=== PATIENT | female | born 1955 | race African-American/Black ===

== ENCOUNTER 2019-08-11 12:51 | Emergency (ER) | payer OTHER ==
[~2019-08-11] VITALS: Ht 167.6 cm; Wt 72.6 kg
[2019-08-11 14:24] LABS: Basophils # (auto) 0.1 uL; Eosinophils # (auto) 0 uL; Hemoglobin 12.9 g/dL (12.2-16.2); Lymphocytes # (auto) 0.6 uL; Monocytes # (auto) 0.5 uL; Monocytes % (auto) 3.4 % (0.0-12.0)
[2019-08-11 14:25] LABS: Basophils % (auto) 0.6 % (0.0-2.0); Eosinophils % (auto) 0.3 % (0.0-7.0); Hematocrit 39.7 % (36.0-46.0); Lymphocytes % (auto) 4.1 % (10.0-50.0); Mean Corpuscular Hemoglobin 25.9 pg (28.0-32.0); Mean Corpuscular Hgb Conc. 32.6 g/dL (32.0-36.0); Mean Corpuscular Volume 79.5 fL (80.0-100.0); Neutrophils % (auto) 91.6 % (37.0-80.0); Nucleated Red Blood Cells % 0.1 %; Platelet Count (auto) 246 10^3/uL (140-450); Red Blood Cells 4.99 10^6/uL (4.0-5.20); Red Cell Distribution Width 16.5 % (11.8-14.3); White Blood Cell 14.2 10^3/uL (4.4-10.8)
[2019-08-11 14:51] LABS: Albumin 2.6 g/dL (3.4-5.0); BUN/Creatinine Ratio 9.9; Calcium 8.8 mg/dL (8.5-10.1); Potassium 4.3 mmol/L (3.5-5.1)
[2019-08-11 14:56] LABS: Bilirubin, Total 0.4 mg/dL (0.2-1.0); Total Protein 7.1 g/dL (6.4-8.2)
[2019-08-11] MEDS ORDERED: IPRATROPIUM BROM 0.5 MG/2.5ML INH SOL NEB ONE (19:45)
[2019-08-11] MEDS ORDERED: ALBUTEROL SULF 2.5 MG/0.5ML(0.5%) NEB SOLN NEB ONE (19:45)
[2019-08-11] MEDS ORDERED: DOXYCYCLINE 100MG/250ML 250 ML IV ONE (20:30)
[2019-08-11 20:43] LABS: Urine Bacteria NONE SEEN /hpf (None Seen); Urine Blood Negative /uL (Negative); Urine Hyaline Cast FEW /lpf (0 - 2); Urine Specific Gravity 1.013 (1.001-1.035); Urine WBC 3 /hpf (0 - 5)
[2019-08-11] MEDS ORDERED: methylPREDNISolone SOD SUCC 125 MG/2 ML VL IV ONE (21:00)
[2019-08-12 00:56] VITALS: BP 120/69
== END 2019-08-12 01:19 | disposition home or self-care (01) ==
LOC: ER 12:51 → EDBD 12:51 → ER 08-12 01:19
DX: J44.1 Chronic obstructive pulmonary disease with (acute) exacerbation (principal); R79.89 Other specified abnormal findings of blood chemistry; I10 Essential (primary) hypertension
CPT/HCPCS: 36415; 71046; 80053; 81001; 83880; 84484; 85025; 93005; 94640; 96365; 96366; 96375; 99285; J2930; J3490; J7611; J7644

== ENCOUNTER 2024-09-07 14:06 | Inpatient (IN) | payer OTHER ==
[~2024-09-07] VITALS: Ht 160 cm; Wt 61.9 kg
--- NOTE | 2024-09-07 14:34 | ECG ---
[facility] Test Date: 2024-09-07 Test Time: 14:27:21 Pat Name: CINDY LOZANO Department: ER Room: 0240 Gender: F Community Support Professional: LASHAWN : 1955 Requested By: ABEBE HAMLIN Order Number: [id number] Reading MD: Horacio Rea Measurements Intervals [place] Rate: 113 P: 70 TX: 134 QRS: 110 QRSD: 86 T: 53 QT: 398 QTc: 546 Interpretive Statements Sinus arrhythmia Multiple premature complexes, vent & supraven Consider right ventricular hypertrophy Borderline T abnormalities, anterior leads Prolonged QT interval Electronically Signed On 09-11-2024 17:32:07 PST by Horacio Rea Please click the below link to view image of tracing.
--- NOTE | 2024-09-07 14:56 | DVH ---
CHEST RADIOGRAPH Indication: sob Technique: Single frontal view of the chest was obtained Comparison: None FINDINGS: Lines and Tubes: None Lungs: No focal consolidation. Pleura: No effusion. No pneumothorax. Cardiomediastinal contours: Unremarkable Bones: No acute osseous abnormality. IMPRESSION: No acute cardiopulmonary disease.
[2024-09-07 15:18] LABS: Basophils # (auto) 0.1 10 ^3/uL (0-0.2); Basophils % (auto) 0.8 % (0.0-2.0); Eosinophils # (auto) 0 10 ^3/uL (0-0.8); Eosinophils % (auto) 0.4 % (0.0-7.0); Hematocrit 42.4 % (36.0-46.0); Hemoglobin 13.5 g/dL (12.2-16.2); Lymphocytes % (auto) 14.7 % (10.0-50.0); Mean Corpuscular Hemoglobin 25.6 pg (28.0-32.0); Mean Corpuscular Hgb Conc. 31.7 g/dL (32.0-36.0); Mean Corpuscular Volume 80.6 fL (80.0-100.0); Monocytes # (auto) 0.4 10 ^3/uL (0-1.3); Monocytes % (auto) 6.3 % (0.0-12.0); Neutrophils # (auto) 5.4 10 ^3/uL (1.6-8.6); Neutrophils % (auto) 77.8 % (37.0-80.0); Nucleated Red Blood Cells % 0.3 %; Platelet Count (auto) 277 10^3/uL (140-450); Red Blood Cells 5.26 10^6/uL (4.0-5.20); Red Cell Distribution Width 17.6 % (11.8-14.3); White Blood Cell 6.9 10^3/uL (4.4-10.8)
[2024-09-07 15:31] LABS: Chloride 101 mmol/L (98-107); Sodium 141 mmol/L (136-145)
[2024-09-07 15:32] LABS: Anion Gap 7 (5-15)
[2024-09-07 15:37] LABS: BUN/Creatinine Ratio 7.7 (10.0-20.0)
[2024-09-07 15:40] LABS: Blood Urea Nitrogen 6 mg/dL (9-23); Carbon Dioxide 33 mmol/L (20-31); Glucose 171 mg/dL (74-106); Potassium 3.1 mmol/L (3.5-5.1)
[2024-09-07] MEDS: ASPirin 325 MG TAB PO ONE (17:16)
[2024-09-07] MEDS: IPRATROPIUM BROM 0.5 MG/2.5ML INH SOL NEB ONE (19:30)
[2024-09-07] MEDS: ALBUTEROL SULF 2.5 MG/0.5ML(0.5%) NEB SOLN NEB ONE (19:30)
--- NOTE | 2024-09-07 19:38 | ED.PDOC ---
SOB-HPI HPI Comments 19-year-old female with a history of diabetes, asthma, recently diagnosed with pneumonia and influenza on home O2 at 3 L brought in by EMS, transferred from [place] urgent care for evaluation of elevated troponin. Patient presented there for a complaint of epigastric pressure and belching. Troponins there were slightly elevated, so patient was transferred to our ER. Patient denies any chest pain, does state she is intermittently short of breath, however she states her shortness a breath is usually relieved by putting on her oxygen. She denies any fever, cough, nausea, vomiting, diaphoresis or edema. Patient states she was recently admitted at another facility in July with pneumonia and influenza. She was discharged on 08/09/2024 on home oxygen at 3 L. 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 Moist mucous membranes.) Neck: Full Range of Motion, Normal Inspection Respiratory: Decreased Breath Sounds, No Accessory Muscle Use, No Respiratory Distress, Other (Tachypnea) Cardiovascular: No Edema, No JVD, Regular Rate/Rhythm Breast Exam: Deferred Gastrointestinal: Non Tender, Soft Genitalia: Deferred Pelvic: Deferred Rectal: Deferred Extremities: Normal inspection, Normal range of motion, Non-tender, No pedal edema Neurologic: Alert (Oriented x4), Normal Affect, Normal Mood, Other (Ambulatory without difficulty. No gross focal deficit.) Cerebellar Function: NOT DONE Reflexes: NOT DONE Skin: Dry, Normal Color, Warm Lymphatic: NOT DONE EKG EKG : Comments Sinus tach with sinus arrhythmia, rate 113, normal NM and QRS intervals, QTC prolonged at 546, multiple PACs,, normal QRS, anteroseptal T inversion with ST depression Was a procedure done? Was a procedure done?: No Differential Dx Differential Diagnosis: Asthma, Bronchitis, CHF, COPD, Hyperventilation, Myocardial infarction, Pneumonia, PSVT, Pulmonary Embolism, Respiratory Distress Comments AFib, MAT, among others X-Ray, Labs, Meds, VS Vital Signs Date Time Temp Pulse Resp B/P (MAP) Pulse Ox O2 Delivery O2 Flow Rate FiO2 09/07/24 20:16 91 Nasal Cannula* 2 09/07/24 19:40 94 20 91 Nasal Cannula* 2 09/07/24 19:40 97.6 94 20 115/59 (77) 91 97.6 09/07/24 19:30 18 91 Nasal Cannula* 2 09/07/24 14:49 98.2 114 16 156/86 (109) 96 09/07/24 14:27 113 Lab Test 09/07/24 19:46 09/07/24 18:12 09/07/24 16:09 09/07/24 14:57 Range/Units Blood Gas Specimen Type Arterial Blood Gas Sample Site Right radial Blood Gas Patient Temperature 37.0 Arterial Blood Date Drawn [id number] Arterial Blood pH 7.502 H 7.350-7.450 Arterial Blood Partial Pressure CO2 41.6 32.0-45.0 mmHg Arterial Blood Partial Pressure O2 51.7 *L 83.0-108.0 mmHg Arterial Blood HCO3 31.9 H 21.0-28.0 mmol/L Arterial Blood Oxygen Saturation 87.5 L 94.0-98.0 % Arterial Blood Base Excess 8.0 H -2.0-3.0 mmol/L Arterial Blood Oxyhemoglobin 84.7 L 94.0-98.0 % Arterial Blood Carboxyhemoglobin 2.7 H 0.5-1.5 % Arterial Blood Methemoglobin 0.5 0.0-1.5 % Herber Test Yes Blood Gas Total Hemoglobin 13.60 12.0-16.0 g/dL Blood Gas Liter Flow 2.00 Blood Gas Modality Nasal cannula Blood Gas Spontaneous Rate 18 FiO2 % 28.0 Blood Gas Critical Value Read Back Yes Blood Gas Notified Whom Dr. fransisco hamlin Blood Gas Notified Time [id number] Blood Gas Notified By Phillip pineda rcp Magnesium Level 2.1 1.6-2.6 mg/dL Troponin I High Sensitivity 39 *H 35 *H 35 *H </=34 ng/L Triglycerides Level 110 < 150 mg/dL Cholesterol Level 242 H < 200 mg/dL LDL Cholesterol 81 < 100 mg/dL HDL Cholesterol 124 H 40-59 mg/dL White Blood Count 6.9 4.4-10.8 10^3/uL Red Blood Count 5.26 H 4.0-5.20 10^6/uL Hemoglobin 13.5 12.2-16.2 g/dL Hematocrit 42.4 36.0-46.0 % Mean Corpuscular Volume 80.6 80.0-100.0 fL Mean Corpuscular Hemoglobin 25.6 L 28.0-32.0 pg Mean Corpuscular Hemoglobin Concent 31.7 L 32.0-36.0 g/dL Red Cell Distribution Width 17.6 H 11.8-14.3 % Platelet Count 277 140-450 10^3/uL Mean Platelet Volume 7.9 6.9-10.8 fL Neutrophils (%) (Auto) 77.8 37.0-80.0 % Lymphocytes (%) (Auto) 14.7 10.0-50.0 % Monocytes (%) (Auto) 6.3 0.0-12.0 % Eosinophils (%) (Auto) 0.4 0.0-7.0 % Basophils (%) (Auto) 0.8 0.0-2.0 % Neutrophils # (Auto) 5.4 1.6-8.6 10 ^3/uL Lymphocytes # (Auto) 1.0 0.4-5.4 10 ^3/uL Monocytes # (Auto) 0.4 0-1.3 10 ^3/uL Eosinophils # (Auto) 0 0-0.8 10 ^3/uL Basophils # (Auto) 0.1 0-0.2 10 ^3/uL Nucleated Red Blood Cells 0.3 % Sodium Level 141 136-145 mmol/L Potassium Level 3.1 L 3.5-5.1 mmol/L Chloride Level 101 98-107 mmol/L Carbon Dioxide Level 33 H 20-31 mmol/L Anion Gap 7 5-15 Blood Urea Nitrogen 6 L 9-23 mg/dL Creatinine 0.78 0.550-1.02 mg/dL Glomerular Filtration Rate Calc 81 >90 mL/min BUN/Creatinine Ratio 7.7 L 10.0-20.0 Serum Glucose 171 H 74-106 mg/dL Calcium Level 10.0 8.7-10.4 mg/dL B-Type Natriuretic Peptide 50.44 0-100 pg/mL Current Medications Medications (Trade) Dose Ordered Sig/Vee Route Start Time Stop Time Status Last Admin Aspirin 325 mg ONCE ONCE PO 09/07/24 14:45 09/07/24 14:46 DC 09/07/24 17:16 Albuterol (Ventolin Medneb) 2.5 mg ONCE ONCE NEB 09/07/24 19:30 09/07/24 19:31 DC 09/07/24 19:30 Ipratropium [place] (Atrovent Medneb) 0.5 mg ONCE ONCE NEB 09/07/24 19:30 09/07/24 19:31 DC 09/07/24 19:30 Methylprednisolone Sodium Succinate (Solu Medrol) 125 mg ONCE ONCE IV 09/07/24 19:30 09/07/24 19:31 DC 09/07/24 20:06 Potassium Bicarbonate (Klor-Con/Ef) 50 meq ONCE ONCE PO 09/07/24 19:45 09/07/24 19:46 DC 09/07/24 20:07 Sodium Chloride 1,000 ml @ 1,000 mls/hr Q1H ONCE IV 09/07/24 19:45 09/07/24 20:44 DC 09/07/24 20:06 PROCEDURE(s): CXRP - CHEST PORTABLE REASON: sob ORDER NUMBER(s): [id number], ACCESSION NUMBER(s): [id number] CHEST RADIOGRAPH Indication: sob Technique: Single frontal view of the chest was obtained Comparison: None FINDINGS: Lines and Tubes: None Lungs: No focal consolidation. Pleura: No effusion. No pneumothorax. Cardiomediastinal contours: Unremarkable Bones: No acute osseous abnormality. IMPRESSION: No acute cardiopulmonary disease. X-Ray, Labs, Meds, VS Comment 69-year-old female with a history of diabetes, asthma/COPD, pneumonia and influenza on home O2, referred by [place] [facility] for epigastric pressure, shortness of breath and elevated troponin Vitals remarkable for heart rate 113, oxygen saturation 88% on room air interm ittently when patient is talking Exam remarkable for tachypnea and tachycardia Rhythm strip independently interpreted by me: Sinus tach with multiple PACs, rate 113 Chest x-ray IMPRESSION: No acute cardiopulmonary disease. CT angio chest pending CBC unremarkable, metabolic panel remarkable for potassium 3.1, CO2 33, BNP normal, serial troponins 35, 35 and 39 Patient treated with the following in the ED: Aspirin 325 mg p.o., albuterol 2.5 mg/Atrovent 0.5 mg nebulized, effervescent potassium 50 mEq p.o., 1 L 0.9 normal saline IV bolus On re-evaluation, patient is saturating 91% on 3 L nasal cannula, heart rate is 112, she is not in respiratory distress. Plan is to admit/transfer the patient for Cardiology evaluation and respiratory support as needed Case discussed with [facility] who authorized us to admit the patient here. Authorization [id number] Time of 1ST Reevaluation: 19:35 Reevaluation 1ST: Unchanged Patient Education/Counseling: Diagnosis, Treatment, Need For Follow Up Family Education/Counseling: No Family Present Departure 1 Departure Time of Disposition: 19:35 Impression: Primary Impression: Elevated troponin Additional Impressions: Acute exacerbation of chronic obstructive pulmonary disease [id number] respiratory failure Qualified Codes: J96.20 - Acute and chronic respiratory failure, unspecified whether with hypoxia or hypercapnia Disposition: ADMITTED INPATIENT Admit to: Tele Condition: Guarded Critical Care Note Critical Care Time?: No Stability Stability form required: No Heart Score Heart Score: Heart Score Response (Comments) Value History Slightly Suspicious [address]-Deviation 2 Age >65 2 Risk Factors 1 or 2 risk factors 1 Troponin 1-2 x's Normal limit 1 Total 6 AU ABEBE HAMLIN MD Sep 07, 2024 19:38
[2024-09-07 19:40] VITALS: PULSE 94; RESP 20; O2SAT 91
[2024-09-07] MEDS: SODIUM CHLORIDE 0.9% 1,000 ML IV ONE (20:06)
[2024-09-07] MEDS: methylPREDNISolone SOD SUCC 125 MG/2 ML VL IV ONE (20:06)
[2024-09-07] MEDS: POTASSIUM EFFERVESENT TAB 25 MEQ PO ONE (20:07)
[2024-09-07] MEDS: IOHEXOL 350 MG/ML 100ML IJ ONE (21:49)
--- NOTE | 2024-09-07 21:59 | DVH ---
History: hypoxia, tachycardia, elevated trop r/o PE Comparison: None relevant TECHNIQUE: Using a slice CT scanner volumetric data acquisition of chest, abdomen and pelvis was obta ined following intravenous administration of intravenous 100 ml contrast without any reported adverse effects. Axial images were reconstructed and additional sagittal and coronal images were reformatted . 3D/MIP images were performed and reviewed for reporting. Radiation Dose Information: CT Dose: CTDI volume is mGy. Dose-length product is mGy*cm Findings: There is increased kyphosis involving the mid thoracic spine with multiple midthoracic vertebral bodi es demonstrating anterior wedging is also disc disease associated with those bodies. The pulmonary arteries are enlarged. The central pulmonary artery measures 3.73 cm in caliber right p ulmonary artery measures 2.72 cm in caliber in the left pulmonary artery measures 2.35 cm in caliber. Is bilateral hilar adenopathy no pulmonary emboli are seen. There is a spiculated nodule seen in the posterior left lower lobe measuring 2.89 X 1.08x 2.63 cm is adjacent to the left pleura is also kourtney lar finding in the left lingula measures 1.28 by 1 by 1.63 cm. There are calcified lymph nodes throug hout the mediastinum including the asia. Heart is borderline size. Lower esophagus is unremarkable upper abdomen appears to be within normal l imits. IMPRESSION: 1. Borderline cardiomegaly. There are 2 parenchymal nodules in the left lung which are suspicious. There is no evidence for pulmonary embolus. Lung rads category 4 follow-up study in 3 months consideration of biopsy or PET scan is suggested.
[2024-09-07] MEDS: SODIUM CHLORIDE 0.9% 1,000 ML IV SCH (22:15)
[2024-09-07] MEDS ORDERED: ACETAMINOPHEN 325 MG TAB PO PRN (22:15)
[2024-09-07 22:37] LABS: Magnesium 2.1 mg/dL (1.6-2.6)
--- NOTE | 2024-09-07 22:56 | DVHHPRES ---
History of Present Illness Resident Creating Document: CLIVE LOVE RESIDENT History of Present Illness This is a 69-year-old female with past medical history of asthma, questionable COPD which is on home oxygen at 2 L through nasal cannula. Patient stated that since a severe asthma attack in 2019 associated with pneumonia she was placed on home oxygen at that time. The patient presented to the ED referred by [facility] due to elevated troponins. When questioning the patient furthermore about reasons of going to the urgent care, she stated that she went because she was feeling "gas trapping in her abdomen and chest" that was disturbing her and not allowing her to breathe properly. She also mentioned that she felt some "hemorrhoids" and wanted to get checked out. While in the urgent care, they ordered blood test to rule out cardiac etiology and showed elevated troponins and was referred to our ED. on admission, the patient denied chest pain, shortness of breath, fever/chills or any other issues. Initial EKG showed sinus arrhythmia with nonspecific T-wave abnormalities but no ST segment elevation or depression. There was also prolongation of the QT interval initial labs showed normal CBC, BNP showed hypokalemia at 3.1 rest of electrolytes and kidney function was remarkable. Troponins came back slightly elevated 39 and BNP was on normal range at 50.44. Initial chest x-ray was showing no evidence of clear consolidations and was grossly unremarkable. On my examination, the patient was on 2 L of oxygen through nasal cannula in no respiratory distress at this time. There were very mild crackles on right lung base, no peripheral edema, no chest pain or any other signs or symptoms. The patient will be admitted for further assessment and management of NSTEMI and possible asthma/COPD exacerbation. Past medical history: Asthma, questionable COPD Home medications: Albuterol inhaler, ipratropium bromide inhaler 17 mcg, Spiriva, vitamin-D, three day pill ([id number]-Ojhtngkui-Lrvsrh) of azithromycin Pulmonary: Asthma Past Surgical History: None Family History: None Smoke: No ALCOHOL: none Drugs: None Lives: with Family Domestic Violence: Neg Review of Systems Constitutional: No: Fever, Chills, Sweats, Weakness, Malaise, Other Eyes: No: Pain, Vision change, Conjunctivae inflammation, Eyelid inflammation, Other, Redness ENT: No: Ear pain, Ear discharge, Nose pain, Nose discharge, Nose congestion, Mouth pain, Mouth swelling, Throat pain, Throat swelling, Other Respiratory: Shortness of breath, SOB with excertion; No: Cough, Dry, Wheezing, Hemoptysis, Pleuritic Pain, Sputum, Wheezing, Other Cardiovascular: No: Chest Pain, Palpitations, Orthopnea, Paroxysmal Noc. Dyspnea, Edema, Lt Headedness, Other Gastrointestinal: No: Nausea, Vomiting, Abdominal Pain, Diarrhea, Constipation, Melena, Hematochezia, Other Genitourinary: No Dysuria, No Frequency, No Incontinence, No Hematuria, No Retention, No Other Musculoskeletal: No: other, neck pain, shoulder pain, arm pain, back pain, hand pain, leg pain, foot pain Skin: No: Rash, Lesions, Jaundice, Bruising, Other Neurological: No: Weakness, Numbness, Incoordination, Change in speech, Confusion, Seizures, Other Allergies: Coded Allergies: NO KNOWN ALLERGIES (Unverified , 08/11/19) Medications Current Medications Medications Dose Ordered Sig/Vee Route Start Time Stop Time Status Last Admin Dose Admin Sodium Chloride 1,000 ml @ 60 mls/hr [id number] IV 09/07/24 22:15 UNV Acetaminophen 650 mg Q6HP PRN PO 09/07/24 22:15 UNV Enoxaparin Sodium 40 mg DAILY SC 09/08/24 10:00 UNV Exam Vital Signs Vital Signs Date Time Temp Pulse Resp B/P (MAP) Pulse Ox O2 Delivery O2 Flow Rate FiO2 09/07/24 20:16 91 Nasal Cannula* 2 28 09/07/24 19:40 94 20 09/07/24 19:40 97.6 115/59 (77) 97.6 General Appearance: Alert, Oriented X3, Cooperative, No acute distress HEENT: Atraumatic, PERRLA, EOMI, Mucous membr. moist/pink Respiratory: Clear to auscultation, Normal air movement, Other (Are very mild crackles on right lung base) Cardiovascular: Regular rate, Normal S1, Normal S2, No murmurs Abdominal: Normal bowel sounds, Soft, No tenderness, No hepatospenomegaly Extremities: No clubbing, No cyanosis, No edema, Normal pulses, No tenderness/swelling Skin: No rashes, No breakdown, No significant lesion Neuro: Normal gait, Normal speech, Strength at 5/5 X4 ext, Normal tone, Sensation intact, Cranial nerves 3-12 NL, Reflexes 2+ Psych/Mental Status: Mental status NL, Mood NL Labs/Xrays Labs Test 09/07/24 19:46 09/07/24 18:12 09/07/24 14:57 Range/Units Blood Gas Specimen Type Arterial Blood Gas Sample Site Right radial Blood Gas Patient Temperature 37.0 Arterial Blood Date Drawn [id number] Arterial Blood pH 7.502 H 7.350-7.450 Arterial Blood Partial Pressure CO2 41.6 32.0-45.0 mmHg Arterial Blood Partial Pressure O2 51.7 *L 83.0-108.0 mmHg Arterial Blood HCO3 31.9 H 21.0-28.0 mmol/L Arterial Blood Oxygen Saturation 87.5 L 94.0-98.0 % Arterial Blood Base Excess 8.0 H -2.0-3.0 mmol/L Arterial Blood Oxyhemoglobin 84.7 L 94.0-98.0 % Arterial Blood Carboxyhemoglobin 2.7 H 0.5-1.5 % Arterial Blood Methemoglobin 0.5 0.0-1.5 % Herber Test Yes Blood Gas Total Hemoglobin 13.60 12.0-16.0 g/dL Blood Gas Liter Flow 2.00 Blood Gas Modality Nasal cannula Blood Gas Spontaneous Rate 18 FiO2 % 28.0 Blood Gas Critical Value Read Back Yes Blood Gas Notified Whom Dr. fransisco anderson Blood Gas Notified Time [id number] Blood Gas Notified By Phillip pineda consumer affairs director Troponin I High Sensitivity 39 *H </=34 ng/L White Blood Count 6.9 4.4-10.8 10^3/uL Red Blood Count 5.26 H 4.0-5.20 10^6/uL Hemoglobin 13.5 12.2-16.2 g/dL Hematocrit 42.4 36.0-46.0 % Mean Corpuscular Volume 80.6 80.0-100.0 fL Mean Corpuscular Hemoglobin 25.6 L 28.0-32.0 pg Mean Corpuscular Hemoglobin Concent 31.7 L 32.0-36.0 g/dL Red Cell Distribution Width 17.6 H 11.8-14.3 % Platelet Count 277 140-450 10^3/uL Mean Platelet Volume 7.9 6.9-10.8 fL Neutrophils (%) (Auto) 77.8 37.0-80.0 % Lymphocytes (%) (Auto) 14.7 10.0-50.0 % Monocytes (%) (Auto) 6.3 0.0-12.0 % Eosinophils (%) (Auto) 0.4 0.0-7.0 % Basophils (%) (Auto) 0.8 0.0-2.0 % Neutrophils # (Auto) 5.4 1.6-8.6 10 ^3/uL Lymphocytes # (Auto) 1.0 0.4-5.4 10 ^3/uL Monocytes # (Auto) 0.4 0-1.3 10 ^3/uL Eosinophils # (Auto) 0 0-0.8 10 ^3/uL Basophils # (Auto) 0.1 0-0.2 10 ^3/uL Nucleated Red Blood Cells 0.3 % Sodium Level 141 136-145 mmol/L Potassium Level 3.1 L 3.5-5.1 mmol/L Chloride Level 101 98-107 mmol/L Carbon Dioxide Level 33 H 20-31 mmol/L Anion Gap 7 5-15 Blood Urea Nitrogen 6 L 9-23 mg/dL Creatinine 0.78 0.550-1.02 mg/dL Glomerular Filtration Rate Calc 81 >90 mL/min BUN/Creatinine Ratio 7.7 L 10.0-20.0 Serum Glucose 171 H 74-106 mg/dL Calcium Level 10.0 8.7-10.4 mg/dL B-Type Natriuretic Peptide 50.44 0-100 pg/mL Assessment/Plan Assessment/Plan Assessment/plan Acute respiratory distress likely due to multifocal pneumonia/COPD exacerbation R/O pulmonary embolism -currently on 2 L of oxygen through nasal cannula which is her baseline -initial chest x-ray showing possible hyperinflated lungs but no clear consolidation at this time -ordered CT angio chest -Start IV doxycycline due to prolongued QT interval on EKG -respiratory therapy with albuterol and ipratropium med nebs -methylprednisolone 40 mg IV b.i.d. -Monitor O2 sats NSTEMI likely type II -Denies chest pain -Trops slightly positive 35-39 -EKG showed sinus arrhythmia with nonspecific T-wave abnormalities without ST segment elevation or depression. There was also QT prolongation -trend troponins -ordered echocardiogram to rule out motion abnormalities Acute Hypokalemia -Potassium was 3.1, was replaced -Check electrolytes closely Diabetes mellitus type II -patient is hyperglycemic but denies hx of DM -Ordered Hb A1c which came back at 9.3% -Start lantus 15 units daily -Start mod sliding scale insulin Goals of care discussed with the patient for >30min, FULL CODE Plan discussed with Dr. Julio Plan discussed with: Patient My Orders Orders - CLIVE LOVE Procedure Category Date Status Time Admit ADMIT 09/07/24 Transmitted 22:04 Code Status CODE 09/07/24 Transmitted 22:04 Vital Signs LISA 09/07/24 In Process 22:04 Review Orders With LISA 09/07/24 In Process Adm. 22:04 Encourage Activity As LISA 09/07/24 In Process Tolerate 22:04 Regular Diet DIET 09/08/24 Transmitted Breakfast Sodium Chloride 0.9% PHA 09/07/24 Logged 22:15 Acetaminophen Tablet PHA 09/07/24 Logged (Tylenol Tablet) 22:15 Notify Md Of Changes LISA 09/07/24 In Process From Base 22:04 Advance Directive LISA 09/07/24 In Process 22:04 Basic Metabolic Panel LAB 09/08/24 Verified 04:00 Urinalysis LAB 09/07/24 Logged 22:04 Lipid Panel LAB 09/07/24 Logged 22:04 Urine Bacterial SCOOTER 09/07/24 Logged Culture 22:04 Patient Condition ORDERS 09/07/24 Transmitted 22:04 Allergies LISA 09/07/24 In Process 22:04 Drug Screen LAB 09/07/24 Logged 22:04 Hemoglobin A1c LAB 09/07/24 Logged 22:04 Enoxaparin Sodium PHA 09/08/24 Logged (Lovenox) 10:00 Magnesium LAB 09/07/24 Transmitted 22:10 Lactic Acid W/ Reflex LAB 09/07/24 Transmitted Order 22:10 Echo 2d Mode Cardiac US 09/07/24 Transmitted DOP 22:10 Date of Service: Sep 07, 2024 Billing Provider: MARIA L JULIO MD Common Visit Codes: 36999-[id number] INP/OBS CARE (HIGH) Secondary Visit Codes: [id number] CARE PLAN 30 MINUTES CLIVE LOVE RESIDENT Sep 07, 2024 22:56 MARIA L JULIO MD Sep 08, 2024 14:43
[2024-09-07] MEDS: DOXYCYCLINE 100MG/100ML 100 ML IV SCH (23:22)
[2024-09-08] VITALS (18 sets, daily range): BP systolic 104–133; BP diastolic 52–76; PULSE 85–110; RESP 16–20; TEMP 97.4–98; O2SAT 91–100
[2024-09-08] MEDS: IPRATROPIUM BROM 0.5 MG/2.5ML INH SOL NEB SCH
[2024-09-08] MEDS: ALBUTEROL SULF 2.5 MG/0.5ML(0.5%) NEB SOLN NEB SCH
[2024-09-08] MEDS ORDERED: TIOTCAP IN (03:14)
[2024-09-08] MEDS ORDERED: ALBU2SYP25 PO (03:14)
[2024-09-08] MEDS ORDERED: IPRIH INH (03:14)
[2024-09-08] MEDS ORDERED: MONT4CHW74 PO (03:14)
[2024-09-08 06:29] LABS: Anion Gap 10 (5-15); Carbon Dioxide 26 mmol/L (20-31); Chloride 103 mmol/L (98-107); Potassium 4.7 mmol/L (3.5-5.1); Sodium 139 mmol/L (136-145)
[2024-09-08 06:30] LABS: Calcium 9.8 mg/dL (8.7-10.4)
[2024-09-08 06:35] LABS: BUN/Creatinine Ratio 13.2 (10.0-20.0); Blood Urea Nitrogen 14 mg/dL (9-23)
[2024-09-08 06:40] LABS: Glucose 509 mg/dL (74-106)
[2024-09-08] MEDS ORDERED: DEXTROSE (50%) 50ML SYRG IV PRN (07:00)
[2024-09-08] MEDS: InsuLIN REG 1unit/0.01ml Soln (100units/ml) SC SCH (07:58)
[2024-09-08] MEDS: ACCU-CHEK COMFORT CURVE STRIP VI SCH (07:59)
[2024-09-08] MEDS: INSULIN LANTUS (GLARGINE) 1 /0.01ml (100units/ml) SC SCH (07:59)
[2024-09-08] MEDS: ENOXAPARIN SOD 40 MG/0.4 ML SYRINGE SC SCH (10:10)
[2024-09-08] MEDS: methylPREDNISolone SOD SUCC 40 MG/ML VL IV SCH (10:10)
--- NOTE | 2024-09-08 14:43 | DVHDSRES ---
Discharge Summary Date of Admission Resident Creating Document: CAMERON SIBLEY RESIDENT Sep 07, 2024 at 22:04 Date of Discharge: Sep 08, 2024 Admitting Diagnosis Suspected Acute coronary syndrome/NSTEMI-elevated troponin I Labs/Diagnostic Data: Laboratory Results Test 09/08/24 12:32 09/08/24 05:35 09/07/24 23:10 09/07/24 19:46 POC Glucose 75 mg/dl (70-106) Sodium Level 139 mmol/L (136-145) Potassium Level 4.7 mmol/L (3.5-5.1) Chloride Level 103 mmol/L (98-107) Carbon Dioxide Level 26 mmol/L (20-31) Anion Gap 10 (5-15) Blood Urea Nitrogen 14 mg/dL (9-23) Creatinine 1.06 mg/dL (0.550-1.02) Glomerular Filtration Rate Calc 56 mL/min (>90) BUN/Creatinine Ratio 13.2 (10.0-20.0) Serum Glucose 509 mg/dL (74-106) Calcium Level 9.8 mg/dL (8.7-10.4) Hemoglobin A1c 9.3 % A1C (<5.7) Lactic Acid Level 0.9 mmol/L (0.4-2.0) Vitamin B12 Level 617 pg/mL (211-911) Vitamin D 25-Hydroxy 32.2 ng/mL (30.0-100) Blood Gas Specimen Type Arterial Blood Gas Sample Site Right radial Blood Gas Patient Temperature 37.0 Arterial Blood Date Drawn [id number] Arterial Blood pH 7.502 (7.350-7.450) Arterial Blood Partial Pressure CO2 41.6 mmHg (32.0-45.0) Arterial Blood Partial Pressure O2 51.7 mmHg (83.0-108.0) Arterial Blood HCO3 31.9 mmol/L (21.0-28.0) Arterial Blood Oxygen Saturation 87.5 % (94.0-98.0) Arterial Blood Base Excess 8.0 mmol/L (-2.0-3.0) Arterial Blood Oxyhemoglobin 84.7 % (94.0-98.0) Arterial Blood Carboxyhemoglobin 2.7 % (0.5-1.5) Arterial Blood Methemoglobin 0.5 % (0.0-1.5) Herber Test Yes Blood Gas Total Hemoglobin 13.60 g/dL (12.0-16.0) Blood Gas Liter Flow 2.00 Blood Gas Modality Nasal cannula Blood Gas Spontaneous Rate 18 FiO2 % 28.0 Blood Gas Critical Value Read Back Yes Blood Gas Notified Whom Dr. fransisco anderson Blood Gas Notified Time [id number] Blood Gas Notified By Phillip pineda cold mill operator Test 09/07/24 18:12 09/07/24 14:57 Magnesium Level 2.1 mg/dL (1.6-2.6) Troponin I High Sensitivity 39 ng/L (</=34) Triglycerides Level 110 mg/dL (< 150) Cholesterol Level 242 mg/dL (< 200) LDL Cholesterol 81 mg/dL (< 100) HDL Cholesterol 124 mg/dL (40-59) White Blood Count 6.9 10^3/uL (4.4-10.8) Red Blood Count 5.26 10^6/uL (4.0-5.20) Hemoglobin 13.5 g/dL (12.2-16.2) Hematocrit 42.4 % (36.0-46.0) Mean Corpuscular Volume 80.6 fL (80.0-100.0) Mean Corpuscular Hemoglobin 25.6 pg (28.0-32.0) Mean Corpuscular Hemoglobin Concent 31.7 g/dL (32.0-36.0) Red Cell Distribution Width 17.6 % (11.8-14.3) Platelet Count 277 10^3/uL (140-450) Mean Platelet Volume 7.9 fL (6.9-10.8) Neutrophils (%) (Auto) 77.8 % (37.0-80.0) Lymphocytes (%) (Auto) 14.7 % (10.0-50.0) Monocytes (%) (Auto) 6.3 % (0.0-12.0) Eosinophils (%) (Auto) 0.4 % (0.0-7.0) Basophils (%) (Auto) 0.8 % (0.0-2.0) Neutrophils # (Auto) 5.4 10 ^3/uL (1.6-8.6) Lymphocytes # (Auto) 1.0 10 ^3/uL (0.4-5.4) Monocytes # (Auto) 0.4 10 ^3/uL (0-1.3) Eosinophils # (Auto) 0 10 ^3/uL (0-0.8) Basophils # (Auto) 0.1 10 ^3/uL (0-0.2) Nucleated Red Blood Cells 0.3 % B-Type Natriuretic Peptide 50.44 pg/mL (0-100) Other Laboratory Tests 09/08/24 05:35 09/07/24 14:57 Brief Hx & Hospital Course: HPI-This is a 69-year-old female with past medical history of asthma, questionable COPD which is on home oxygen at 2 L through nasal cannula. Patient stated that since a severe asthma attack in 2019 associated with pneumonia she was placed on home oxygen at that time. The patient presented to the ED referred by [facility] due to elevated troponins. When questioning the patient furthermore about reasons of going to the urgent care, she stated that she went because she was feeling "gas trapping in her abdomen and chest" that was disturbing her and not allowing her to breathe properly. She also mentioned that she felt some "hemorrhoids" and wanted to get checked out. While in the urgent care, they ordered blood test to rule out cardiac etiology and showed elevated troponins and was referred to our ED. on admission, the patient denied chest pain, shortness of breath, fever/chills or any other issues. Initial EKG showed sinus arrhythmia with nonspecific T-wave abnormalities but no ST segment elevation or depression. There was also prolongation of the QT interval initial labs showed normal CBC, BNP showed hypokalemia at 3.1 rest of electrolytes and kidney function was remarkable. Troponins came back slightly elevated 39 and BNP was on normal range at 50.44. Initial chest x-ray was showing no evidence of clear consolidations and was grossly unremarkable. On my examination, the patient was on 2 L of oxygen through nasal cannula in no respiratory distress at this time. There were very mild crackles on right lung base, no peripheral edema, no chest pain or any other signs or symptoms. The patient will be admitted for further assessment and management of NSTEMI and possible asthma/COPD exacerbation. Hospital course-patient came to the hospital as she was found to have elevated troponin I in the urgent care at [facility]. Patient went to the urgent care due to abdominal bloating, gastric distention of the abdomen and chest, concerned about hemodialysis.Initial EKG showed sinus arrhythmia with nonspecific T-wave abnormalities but no ST segment elevation or depression. There was also prolongation of the QT interval initial labs showed normal CBC, BNP showed hypokalemia at 3.1 rest of electrolytes and kidney function was remarkable. Troponins came back slightly elevated 39 and BNP was on normal range at 50.44. Initial chest x-ray was showing no evidence of clear consolidations and was grossly unremarkable. On my examination, the patient was on 2 L of oxygen through nasal cannula in no respiratory distress at this time. There were very mild crackles on right lung base, no peripheral edema, no chest pain or any other signs or symptoms. The patient will be admitted for further assessment and management of NSTEMI and possible asthma/COPD exacerbation. Patient was treated with IV ceftriaxone and azithromycin and methylprednisolone for suspected pneumonia with exacerbation of COPD. Patient had steroid-induced hyperglycemia. Patient is adamant about going home today. Patient is being discharged home with azithromycin 250 mg p.o. daily for 5 days. Patient was advised to follow up with the primary care physician in 1 week and also to follow up with blanket binder for further evaluation care of COPD emphysema of the lung and to left-sided pulmonary nodule.Patient verbalized understanding. Patient was hemodynamically stable on discharge. Diagnosis Acute respiratory distress likely due to multifocal pneumonia/COPD exacerbation R/O pulmonary embolism NSTEMI likely type II likely due to pulmonary strain/right heart strain History of hemorrhoids History of asthma Emphysema of the lung To pulmonary nodule in the left side of the lung Hypokalemia replenished Diabetes mellitus type II, HGB A1c 9.3 Discharge plan Azithromycin 250 mg p.o. daily Metformin 500 mg p.o. daily Resume home medications Please follow up with the primary care physician in 1 week Please be compliant with the medication Please follow up with the blanket binder for further workup for pulmonary nodule and emphysema of the lung, COPD Operations or Procedures [address] [address] Ph: [phone] DIAGNOSTIC IMAGING Diagnostic Imaging Report : [id number] Signed PATIENT: CINDY LOZANO ACCT: [id number] UNIT: [id number] : 1955 LOC: ER ROOM / BED: / AGE / SEX: 69 / F ADM STATUS: REG ER SERVICE 04 ORDERING PHYSICIAN: ABEBE ARIZA MD PROCEDURE(s): CTACH - CT ANGIO CHEST CONTRAST REASON: hypoxia, tachycardia, elevated trop r/o PE ORDER NUMBER(s): [id number], ACCESSION NUMBER(s): [id number] History: hypoxia, tachycardia, elevated trop r/o PE Comparison: None relevant TECHNIQUE: Using a slice CT scanner volumetric data acquisition of chest, abdomen and pelvis was obtained following intravenous administration of intravenous 100 ml contrast without any reported adverse effects. Axial images were reconstructed and additional sagittal and coronal images were reformatted. 3D/MIP images were performed and reviewed for reporting. Radiation Dose Information: CT Dose: CTDI volume is mGy. Dose-length product is mGy*cm Findings: There is increased kyphosis involving the mid thoracic spine with multiple midthoracic vertebral bodies demonstrating anterior wedging is also disc disease associated with those bodies. The pulmonary arteries are enlarged. The central pulmonary artery measures 3.73 cm in caliber right pulmonary artery measures 2.72 cm in caliber in the left pulmonary artery measures 2.35 cm in caliber. Is bilateral hilar adenopathy no pulmonary emboli are seen. There is a spiculated nodule seen in the posterior left lower lobe measuring 2.89 X 1.08x 2.63 cm is adjacent to the left pleura is also similar finding in the left lingula measures 1.28 by 1 by 1.63 cm. There are calcified lymph nodes throughout the mediastinum including the asia. Heart is borderline size. Lower esophagus is unremarkable upper abdomen appears to be within normal limits. IMPRESSION: 1. Borderline cardiomegaly. There are 2 parenchymal nodules in the left lung which are suspicious. There is no evidence for pulmonary embolus. Lung rads category 4 follow-up study in 3 months consideration of biopsy or PET scan is suggested. ATED BY: ISAK REYEZ MD DICTATED DATE/TIME: 09/07/242155 SIGNED BY: ISAK REYEZ MD SIGNED DATE/TIME: 09/07/242155 CC: [place] [address] Ph: [phone] DIAGNOSTIC IMAGING Diagnostic Imaging Report : [id number] Signed PATIENT: CINDY LOZANO ACCT: [id number] UNIT: [id number] : 1955 LOC: ER ROOM / BED: / AGE / SEX: 69 / F ADM STATUS: REG ER SERVICE ORDERING PHYSICIAN: ABEBE ARIZA MD PROCEDURE(s): CXRP - CHEST PORTABLE REASON: sob ORDER NUMBER(s): [id number], ACCESSION NUMBER(s): [id number] CHEST RADIOGRAPH Indication: sob Technique: Single frontal view of the chest was obtained Comparison: None FINDINGS: Lines and Tubes: None Lungs: No focal consolidation. Pleura: No effusion. No pneumothorax. Cardiomediastinal contours: Unremarkable Bones: No acute osseous abnormality. IMPRESSION: No acute cardiopulmonary disease. ATED BY: DORCAS ÁLVAREZ MD DICTATED DATE/TIME: 09/07/241452 SIGNED BY: DORCAS ÁLVAREZ MD SIGNED DATE/TIME: 09/07/24 145 CC: Condition at Discharge: Stable Final Diagnosis/Problems List Acute respiratory distress likely due to multifocal pneumonia/COPD exacerbation R/O pulmonary embolism NSTEMI likely type II likely due to pulmonary strain/right heart strain Ruled out acute coronary syndrome History of hemorrhoids History of asthma To left lung nodule Emphysema of the lung Hypokalemia replenished Diabetes mellitus type II HGB A1c 9.3 Discharge Disposition: Home Discharge Instruct/Medications Diet: Consistent carbohydrate, Cardiac 2g Na,low cholest Follow Up/Referral: Please follow up with the primary care physician in 1 week Please be compliant with the medication Please follow up with the blanket binder for further workup for pulmonary nodule and emphysema of the lung, COPD Medications: Azithromycin 250 mg p.o. daily Metformin 500 mg p.o. daily Resume home medications Discharge Statement: "Patient was advised to return to the ER or call 911 if any headaches, dizziness, shortness of breath, chest pain, abdominal pain, bleeding, fevers, or worsening of medical condition. Patient was counseled about treatment plan, medications, possible side effects, patientverbalized understanding. All questions were answered to the best of my ability. This discharge took greater then 30 minutes in planning, reviewing documentation, counseling the patient, and discussing with other team members." ASSESSMENT ASSESSMENT Assessment CAMERON SIBLEY RESIDENT Sep 08, 2024 14:43
[2024-09-08] MEDS: cefTRIAXone 1GM/50ML D5W 50 ML IV ONE (15:53)
[2024-09-08] MEDS: AZITHROMYCIN 500MG/ 250ML 250 ML IV ONE (16:47)
[2024-09-08] MEDS ORDERED: InsuLIN REG 1unit/0.01ml Soln (100units/ml) SC SCH (22:00)
--- NOTE | 2024-09-09 14:24 | DVHSR ---
APPROVED REPORT EXAM: Two-dimensional and M-mode echocardiogram with Doppler and color Doppler. Blood Pressure: 104/68 mmHg INDICATION NSTEMI R/O MOTION ABN RISK FACTORS Height: 63, Weight: 136 DIMENSIONS LVDd4.3 (3.8-5.7cm)LA (2D)4.2 (1.9-4.0cm)Aortic Root3.6 (2.0-3.7cm) LVDs3.1 (2.5-4.0cm)LA (MM) (1.9-4.0cm)Aortic Cusp Exc2.0 (1.5-2.0cm) EF (%) 55.0 (55-70%)Rt. Atrium5.2 (1.9-4.0cm)Asc. Aorta cm IVSd1.3 (0.7-1.1cm)RV (D) (1.8-2.4cm) PWd1.2 (0.7-1.1cm) Mitral Valve MitralMitral Stenosis E wave0.88m/sMV Mean GR.mmHg A wave1.07m/sMV Peak GR.98mmHg E/A ratio0.82D MVAcm2 DECEL Cins386gsUVTNP 1/2 Hvjw61lb IVRTmsDop MVA3.18cm2 Aortic Valve Aortic ValveAortic Stenosis V11.07m/[place] Mean GR.5mmHg V21.39m/[place] Peak GR.8mmHg LVOT Diameter2.0 (1.8-2.4cm)Doppler AVA2.42cm2 Pulmonic Valve V20.87m/s Tricuspid Valve TR Velocity3.43m/s [id number] Other Information Technically limited study due to body habitus. Conclusion Technically good study. Sinus rhythm. Concentric LVH with biatrial enlargement. RV enlargement. Valves are normal. EF of 55% with normal RV function. Doppler is unremarkable. No pericardial effusion masses or vegetations discernible.
== END 2024-09-08 22:02 | disposition home or self-care (01) | DRG 189 ==
LOC: ER 14:06 → OVERFLOW 22:04 → EAST 09-08 01:20
PROVIDERS: ADMIT Student in an Organized Health Care Education/Training Program; ATTEND Emergency Medicine
DX: J96.20 Acute and chronic respiratory failure, unspecified whether with hypoxia or hypercapnia (principal); I21.A1 Myocardial infarction type 2; J18.9 Pneumonia, unspecified organism; J44.1 Chronic obstructive pulmonary disease with (acute) exacerbation; J44.0 Chronic obstructive pulmonary disease with (acute) lower respiratory infection; I10 Essential (primary) hypertension; F17.210 Nicotine dependence, cigarettes, uncomplicated; R91.1 Solitary pulmonary nodule; E11.65 Type 2 diabetes mellitus with hyperglycemia; E87.6 Hypokalemia; J43.9 Emphysema, unspecified; Z99.81 Dependence on supplemental oxygen; Z79.1 Long term (current) use of non-steroidal anti-inflammatories (NSAID); Z79.899 Other long term (current) drug therapy
CPT/HCPCS: 36415; 36600; 71045; 71275; 80048; 80061; 82306; 82607; 82805; 82962; 83036; 83605; 83735; 83880; 84484; 85025; 93005; 93306; 94640; 96361; 96374; G0378; J1815

== ENCOUNTER 2024-09-24 20:54 | Emergency (ER) | payer OTHER ==
[~2024-09-24] VITALS: Ht 160 cm; Wt 61.4 kg
[~2024-09-24 20:54] MED LIST: ALBU2SYP25 PO; IPRIH INH; MONT4CHW74 PO; TIOTCAP IN
--- NOTE | 2024-09-24 21:30 | ECG ---
[facility] Test Date: 2024-09-24 Test Time: 21:00:34 Pat Name: CINDY LOZANO Department: ER Room: Gender: F Utilization Specialist: STEPHANIE : 1955 Requested By: BRUNO BERNARDO Order Number: [id number] Reading MD: Horacio Rea Measurements Intervals [place] Rate: 91 P: 74 PA: 135 QRS: 101 QRSD: 84 T: 38 QT: 357 QTc: 440 Interpretive Statements Sinus arrhythmia Right axis deviation Electronically Signed On 09-25-2024 19:22:17 PDT by Horacio Rea Please click the below link to view image of tracing.
--- NOTE | 2024-09-24 21:41 | ED.PDOC ---
History of Present Illness HPI Comments 69 year old female came to ER due to palpitations. Patient has history of hypertension, diabetes and COPD. Patient has a pulse oximeter at home and she noted that she was having episodes of bradycardia at 30-40's. She denies any weakness, lightheadedness, dizziness, headaches, chest pains or shortness of breath. Noted her blood sugar was high at 260 so she decided to go to [facility] wherein EKG done showed abnormal results so patient was advised to go to the nearest ER. EKG reviewed shows sinus rhythm in the 90s, 1 Pac noted. Chief Complaint: Palpitations Time Seen by MD: 21:40 Primary Care Provider: COLON Reviewed Notes: Nurses Notes Allergies: Coded Allergies: NO KNOWN ALLERGIES (Unverified , 08/11/19) Home Meds Reported Medications Albuterol Sulfate (Ventolin) 2 Mg/5 Ml Sr, 5 ML PO TID, #150 ML 09/08/24 Tiotropium [place] Monohydrate (Spiriva Handihaler) 18 Mcg Cap, 18 MCG IN, CAP 09/08/24 Montelukast Sodium (Singulair) 4 Mg Chw, 1 TAB PO DAILY, #30 TAB 5 Refills 09/08/24 Ipratropium [place] Hfa (Atrovent Hfa) 17 Mcg Aer, 2 PUFF INH QID, #12.9 GRAMS 5 Refills 09/08/24 Information Source: Patient Mode of Arrival: Ambulatory Severity: Moderate Timing: Hours Duration: Intermittent Prehospital treatment: 12 Lead EKG Review of Systems REVIEW OF SYSTEMS: No fever, no chills, or fatigue HEENT: No sore throat, no earache, no congestion, no neck pain. Cardiac: No chest pain. No palpitations. Lungs: No shortness of breath, no cough. GI: No nausea, no vomiting, no diarrhea, no constipation, no abdominal pain : No dysuria, frequency, or urgency. No hematuria. Musculoskeletal: No joint pain , no joint swelling, no extremity edema. Skin: No rash, no itching. Neuro: No headache, no dizziness, no weakness Vital Signs Vital Signs Date Time Temp Pulse Resp B/P (MAP) Pulse Ox O2 Delivery O2 Flow Rate FiO2 09/24/24 23:55 81 09/24/24 23:00 25 95 Room Air* 0 21 3/14/25 23:00 97.7 116/60 (78) 97.7 Physical Exam General: Awake, alert and oriented. No acute distress. Skin: Skin in warm, dry and intact. Appropriate color for ethnicity. Nailbeds pink with no cyanosis. HEENT: The head is normocephalic and atraumatic. Conjunctivae are clear without exudates or hemorrhage. Sclera is non-icteric. EOM are intact. No signs of nystagmus. Eyelids are normal in appearance without swelling or lesions. Oral mucosa is pink and moist nasal cannula in place. Neck: The neck is supple with normal range of motion. No JVD. Cardiac: Heart rate and rhythm are normal. No murmurs, gallops, or rubs are auscultated. Radial pulses palpated, equally. Respiratory: No signs of respiratory distress. Lung sounds are clear in all lobes bilaterally without rales, ronchi, or wheezes. Abdominal: Abdomen is soft, non-tender without distention. Bowel sounds are present and normoactive in all four quadrants. Extremities: Upper and lower extremities are atraumatic in appearance without deformity or edema. Neurological: The patient is awake, alert and oriented to person, place, and time with normal speech. Speech is clear. There is no facial asymmetry. Strength in upper extremities intact. Psychiatric: Appropriate mood and affect. Good judgement and insight. No visual or auditory hallucinations. Past Medical History PAST MEDICAL HISTORY: Asthma, COPD, DM, HTN, [place] Surgical History: PATIENT RELATIONS DIRECTOR History: No Pertinent PATIENT RELATIONS DIRECTOR History Family History Family History: Reviewed,noncontributory to illness Social History Smoker: Non-Smoker Alcohol: Occasionally Drugs: Denies Drug Use Lives In: Home Was a procedure done? Was a procedure done?: No EKG EKG : Pulse Rate (adult): 91 Dorothy: RAD Cardiac Rhythm: NSR Differential Dx Considerations may include: Anemia, electrolyte imbalance, coronary artery disease, bradycardia, hyperglycemia X-Ray, Labs, Meds, VS Vital Signs Date Time Temp Pulse Resp B/P (MAP) Pulse Ox O2 Delivery O2 Flow Rate FiO2 09/24/24 23:55 81 09/24/24 23:00 88 25 95 Room Air* 0 21 09/24/24 23:00 97.7 88 25 116/60 (78) 94 97.7 09/24/24 22:23 103 19 92 Nasal Cannula 2.0 09/24/24 22:23 98.2 103 19 123/67 (85) 92 98.2 09/24/24 22:03 93 09/24/24 21:41 91 09/24/24 21:12 98.2 97 16 146/82 (103) 92 98.2 09/24/24 21:00 91 Lab Test 09/24/24 22:32 09/24/24 22:25 09/24/24 21:37 Range/Units Troponin I High Sensitivity 30 29 </=34 ng/L Blood Gas Specimen Type Arterial Blood Gas Sample Site Right radial Blood Gas Patient Temperature 37.0 Arterial Blood Date Drawn [id number] Arterial Blood pH 7.452 H 7.350-7.450 Arterial Blood Partial Pressure CO2 36.6 32.0-45.0 mmHg Arterial Blood Partial Pressure O2 52.8 *L 83.0-108.0 mmHg Arterial Blood HCO3 25.0 21.0-28.0 mmol/L Arterial Blood Oxygen Saturation 87.6 L 94.0-98.0 % Arterial Blood Base Excess 1.3 -2.0-3.0 mmol/L Arterial Blood Oxyhemoglobin 85.6 L 94.0-98.0 % Arterial Blood Carboxyhemoglobin 1.8 H 0.5-1.5 % Arterial Blood Methemoglobin 0.5 0.0-1.5 % Herber Test Yes Blood Gas Total Hemoglobin 14.00 12.0-16.0 g/dL Blood Gas Modality Room air FiO2 % 21.0 Specimen Drawn By Blood Gas Critical Value Read Back Yes Blood Gas Notified Whom bruno Purcell md Blood Gas Notified Time [id number] Blood Gas Notified By White Blood Count 7.0 4.4-10.8 10^3/uL Red Blood Count 5.16 4.0-5.20 10^6/uL Hemoglobin 13.8 12.2-16.2 g/dL Hematocrit 41.1 36.0-46.0 % Mean Corpuscular Volume 79.8 L 80.0-100.0 fL Mean Corpuscular Hemoglobin 26.8 L 28.0-32.0 pg Mean Corpuscular Hemoglobin Concent 33.6 32.0-36.0 g/dL Red Cell Distribution Width 16.8 H 11.8-14.3 % Platelet Count 272 140-450 10^3/uL Mean Platelet Volume 8.1 6.9-10.8 fL Neutrophils (%) (Auto) 69.0 37.0-80.0 % Lymphocytes (%) (Auto) 20.6 10.0-50.0 % Monocytes (%) (Auto) 8.1 0.0-12.0 % Eosinophils (%) (Auto) 0.8 0.0-7.0 % Basophils (%) (Auto) 1.5 0.0-2.0 % Neutrophils # (Auto) 4.8 1.6-8.6 10 ^3/uL Lymphocytes # (Auto) 1.4 0.4-5.4 10 ^3/uL Monocytes # (Auto) 0.6 0-1.3 10 ^3/uL Eosinophils # (Auto) 0.1 0-0.8 10 ^3/uL Basophils # (Auto) 0.1 0-0.2 10 ^3/uL Nucleated Red Blood Cells 0.1 % Sodium Level 140 136-145 mmol/L Potassium Level 4.0 3.5-5.1 mmol/L Chloride Level 104 98-107 mmol/L Carbon Dioxide Level 27 20-31 mmol/L Anion Gap 9 5-15 Blood Urea Nitrogen 9 9-23 mg/dL Creatinine 0.70 0.550-1.02 mg/dL Glomerular Filtration Rate Calc 92 >90 mL/min BUN/Creatinine Ratio 12.9 10.0-20.0 Serum Glucose 105 74-106 mg/dL Calcium Level 10.8 H 8.7-10.4 mg/dL Magnesium Level 1.9 1.6-2.6 mg/dL Total Bilirubin 0.5 0.2-1.0 mg/dL Aspartate Amino Transferase (AST) 281 H 13-40 U/L Alanine Aminotransferase (ALT) 384 H 7-40 U/L Alkaline Phosphatase 155 H 46-116 U/L Total Protein 7.6 5.7-8.2 g/dL Albumin 4.6 3.2-4.8 g/dL Beta-Hydroxybutyric Acid 0.131 < 0.4 mmol/L Thyroid Stimulating Hormone (TSH) 1.12 0.55-4.78 uIU/mL Current Medications Medications (Trade) Dose Ordered Sig/Vee Route Start Time Stop Time Status Last Admin Sodium Chloride 1,000 ml @ 1,000 mls/hr Q1H ONCE IV 09/24/24 21:30 09/24/24 22:29 DC 09/24/24 22:25 Time of 1ST Reevaluation: 21:30 Reevaluation 1ST: Unchanged Patient Education/Counseling: Diagnosis, Treatment Family Education/Counseling: No Family Present Departure 1 Departure Time of Disposition: 00:09 Impression: Primary Impression: Abnormal EKG Additional Impression: PAC (premature atrial contraction) Disposition: HOME / SELF CARE / HOMELESS Condition: Stable Additional Instructions: ED DISCHARGE INSTRUCTIONS Instructions: Please read all instructions provided in this packet carefully. Although you have been discharged from the Emergency Department, this does not mean that you have a "clean bill of health". No definitive diagnosis for your symptoms has been made today. It is possible that you are in the process of developing a serious illness. This is why you must return to the ED without fail if any new or worsening symptoms (especially if your symptoms include lighthead edness, weakness, dizziness, slow heart rate that is not improving, heart fluttering or skipping a beat, chest pain, trouble breathing, abdominal pain, fever, headache, confusion, trouble seeing, or trouble walking) It is also very important that you see a primary care doctor on Friday for further evaluation. A Holter monitor has been ordered for you, context your primary care provider for further instructions. If you are unable to get an appointment, return to the ED for re-evaluation. Overview Lightheadedness is a feeling that you are about to faint or "pass out." You do not feel as if you or your surroundings are moving. It is different from vertigo, which is the feeling that you or things around you are spinning or tilting. Lightheadedness usually goes away or gets better when you lie down. If lightheadedness gets worse, it can lead to a fainting spell. It is common to feel lightheaded from time to time. It may be caused by many things. These include allergies, dehydration, illness, and medicines. Lightheadedness usually is not caused by a serious problem. It often is caused by a short-lasting drop in blood pressure and blood flow to your head that occurs when you get up too quickly from a seated or lying position. Follow-up care is a moreland part of your treatment and safety. Be sure to make and go to all appointments, and call your doctor if you are having problems. It's also a good idea to know your test results and keep a list of the medicines you take. How can you care for yourself at home? Lie down for 1 or 2 minutes when you feel lightheaded. After lying down, sit up slowly and remain sitting for 1 to 2 minutes before slowly standing up. Avoid movements, positions, or activities that have made you lightheaded in the past. Get plenty of rest, especially if you have a cold or flu, which can cause lightheadedness. Make sure you drink plenty of fluids, especially if you have a fever or have been sweating. Do not drive or put yourself and others in danger while you feel lightheaded. When should you call for help? Call 911 anytime you think you may need emergency care. For example, call if: You passed out (lost consciousness). You have symptoms of a stroke. These may include: Sudden numbness, tingling, weakness, or loss of movement in your face, arm, or leg, especially on only one side of your body. Sudden vision changes. Sudden trouble speaking. Sudden confusion or trouble understanding simple statements. Sudden problems with walking or balance. A sudden, severe headache that is different from past headaches. You have symptoms of a heart attack. These may include: Chest pain or pressure, or a strange feeling in the chest. Sweating. Shortness of breath. Nausea or vomiting. Pain, pressure, or a strange feeling in the back, neck, jaw, or upper belly or in one or both shoulders or arms. Lightheadedness or sudden weakness. A fast or irregular heartbeat. After you call 911, the two needle machine operator may tell you to chew 1 adult-strength or 2 to 4 low-dose aspirin. Wait for an ambulance. Do not try to drive yourself. Watch closely for changes in your health, and be sure to contact your doctor if: Your lightheadedness gets worse or does not get better with home care. Credits for Lightheadedness or Faintness: Care Instructions Current as of: February 11, 2024 Author: [employer] Staff Clinical Review Board All [employer] education is reviewed by a team that includes physicians, nurses, advanced practitioners, registered dieticians, and other healthcare professionals. Comments 69-year-old female who presented to the emergency department for reports of low heart rate with she noted on her home pulse oximeter. Patient remains asymptomatic during the ED observation, denied dizziness, lightheadedness, shortness of breath, palpitations or weakness. No bradycardia noted during cardiac monitoring here in the emergency department. Occasional PACs were seen on the EKG. Patient felt stable for discharge home. Prior discharge case was discussed with [facility] physician Dr. Castrejon who has ordered a 2 week Holter monitor for patient, patient is advised to follow up with the primary care provider on Friday for further evaluation. Extensive evaluation was performed in attempt to identify or rule out: (See differential diagnosis section) The following tests were ordered, and results were reviewed by me: (See diagnostic results section) The following test were independently interpreted by me: EKG I reviewed and agreed with the following test results read by other providers: Dr. Castrejon I reviewed the following notes from the pt's past medical encounters: (None available at this time) Additional information was gathered from interviewing the following independent historians: N/A Discussion of management or test interpretation with external physician/other qualified health adult care provider: N/A Decision regarding hospitalization or escalation of hospital level of care: Risks and benefits of admission for further treatment of patient's condition was considered however due to patient's stable condition patient will be discharged to follow up closely or return to care for worsening of condition or inability to follow up. Critical Care Note Critical Care Time?: No Stability Stability form required: No Heart Score Heart Score: Heart Score Response (Comments) Value History Moderate Suspicious 1 EKG Normal 0 Age >65 2 Risk Factors >3 or Hx ASHD 2 Troponin Normal limit 0 Total 5 I personally scribed for BRUNO PURCELL MD ([email or web address]) on 09/24/24 at 21:41. Electronically submitted by Chu Pitt ([email or web address]). BRUNO PURCELL MD Sep 24, 2024 21:41
[2024-09-24 21:48] LABS: Basophils # (auto) 0.1 10 ^3/uL (0-0.2); Basophils % (auto) 1.5 % (0.0-2.0); Eosinophils # (auto) 0.1 10 ^3/uL (0-0.8); Eosinophils % (auto) 0.8 % (0.0-7.0); Hematocrit 41.1 % (36.0-46.0); Hemoglobin 13.8 g/dL (12.2-16.2); Lymphocytes # (auto) 1.4 10 ^3/uL (0.4-5.4); Lymphocytes % (auto) 20.6 % (10.0-50.0); Mean Corpuscular Hemoglobin 26.8 pg (28.0-32.0); Mean Corpuscular Hgb Conc. 33.6 g/dL (32.0-36.0); Mean Corpuscular Volume 79.8 fL (80.0-100.0); Monocytes # (auto) 0.6 10 ^3/uL (0-1.3); Monocytes % (auto) 8.1 % (0.0-12.0); Neutrophils # (auto) 4.8 10 ^3/uL (1.6-8.6); Nucleated Red Blood Cells % 0.1 %; Platelet Count (auto) 272 10^3/uL (140-450); Red Blood Cells 5.16 10^6/uL (4.0-5.20); Red Cell Distribution Width 16.8 % (11.8-14.3)
[2024-09-24 22:03] LABS: Albumin 4.6 g/dL (3.2-4.8); Anion Gap 9 (5-15); BUN/Creatinine Ratio 12.9 (10.0-20.0); Blood Urea Nitrogen 9 mg/dL (9-23); Carbon Dioxide 27 mmol/L (20-31); Chloride 104 mmol/L (98-107); Glucose 105 mg/dL (74-106); Magnesium 1.9 mg/dL (1.6-2.6); Sodium 140 mmol/L (136-145); Total Protein 7.6 g/dL (5.7-8.2)
[2024-09-24 22:04] LABS: Bilirubin, Total 0.5 mg/dL (0.2-1.0)
[2024-09-24] MEDS: SODIUM CHLORIDE 0.9% 1,000 ML IV ONE (22:25)
[2024-09-24 22:37] LABS: Base Excess 1.3 mmol/L (-2.0-3.0)
[2024-09-24 22:46] LABS: Alanine Aminotransferase 384 U/L (7-40); Alkaline Phosphatase 155 U/L (46-116); Aspartate Aminotransferase 281 U/L (13-40); Calcium 10.8 mg/dL (8.7-10.4)
[2024-09-24 23:00] VITALS: PULSE 88; RESP 25; O2SAT 95
[2024-09-25 00:52] VITALS: BP 113/56; PULSE 71; RESP 20; TEMP 97.9; O2SAT 97
--- NOTE | 2024-09-25 03:31 | ECG ---
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
--- NOTE | 2024-09-27 14:43 | ECG ---
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
== END 2024-09-25 02:14 | disposition home or self-care (01) ==
LOC: ER 20:54
DX: I49.1 Atrial premature depolarization (principal); I10 Essential (primary) hypertension; E11.9 Type 2 diabetes mellitus without complications; J44.9 Chronic obstructive pulmonary disease, unspecified; I25.2 Old myocardial infarction; Z79.899 Other long term (current) drug therapy
CPT/HCPCS: 36415; 36600; 80053; 82010; 82805; 83735; 84443; 84484; 85025; 93005; 96360; 99285; J7030

== ENCOUNTER 2024-10-27 22:26 | Inpatient (IN) | payer OTHER ==
[~2024-10-27] VITALS: Ht 160 cm; Wt 51.4 kg
[2024-10-27 22:30] VITALS: PULSE 101; RESP 21; O2SAT 96
[2024-10-27] MEDS: dilTIAZem 25 MG/5 ML VIAL IV ONE ×2 (22:32→23:34)
--- NOTE | 2024-10-27 22:45 | ED.PDOC ---
HPI Comments 69 year old female presents to the ED via EMS with a chief complaint of palpitations onset today (10/27/24). Per EMS, patient was sitting down, watching tv when she began experiencing palpitations, checked HR, was elevated and called 911. Upon EMS arrival, HR was 150-160, BS 163, O2 sat 88% on RA. Patient was given IV fluids in route. Patient states she has no other complaints. PMHx COPD, HTN, DM, asthma, VA. Denies shortness of breath, chest pain, weakness, dizziness, nausea, vomiting, diarrhea, abdominal pain, fever, chills. No other symptoms or modifying factors present at this time. Time Seen by MD: 22:32 Primary Care Provider: ISAIAH Reviewed Notes: Medications, Allergies Allergies: Coded Allergies: NO KNOWN ALLERGIES (Unverified , 08/11/19) Home Meds Reported Medications Albuterol Sulfate (Ventolin) 2 Mg/5 Ml Sr, 5 ML PO TID, #150 ML 09/08/24 Tiotropium [place] Monohydrate (Spiriva Handihaler) 18 Mcg Cap, 18 MCG IN, CAP 09/08/24 Montelukast Sodium (Singulair) 4 Mg Chw, 1 TAB PO DAILY, #30 TAB 5 Refills 09/08/24 Ipratropium [place] Hfa (Atrovent Hfa) 17 Mcg Aer, 2 PUFF INH QID, #12.9 GRAMS 5 Refills 09/08/24 Information Source: Patient, Emergency Med Personnel Mode of Arrival: EMS Severity: Moderate Timing: Hours Duration: Since onset Prehospital treatment: 12 Lead EKG, IVF Radiation: No Radiation Onset: With Light Exertion Cardiac Risk Factors: HTN, Diabetes PE Risk Factors: None History of: VA Modifying Factors: Nothing Associated Signs and Symptoms: Palpitations Vital Signs Vital Signs Date Time Temp Pulse Resp B/P (MAP) Pulse Ox O2 Delivery O2 Flow Rate FiO2 10/28/24 02:00 86 25 94/57 (69) 97 10/27/24 22:30 98.1 98.1 10/27/24 22:30 Nasal Cannula* 2 28 Physical Exam General: Awake, alert and oriented. No acute distress. Skin: Skin in warm, dry and intact. Appropriate color for ethnicity. HEENT: The head is normocephalic and atraumatic. Conjunctivae are clear without exudates or hemorrhage. Sclera is non-icteric. Eyelids are normal in appearance without swelling or lesions. Neck: The neck is supple with normal range of motion. No JVD. Cardiac: Rapid rate. Regular rhythm No murmurs, gallops, or rubs are auscultated. Respiratory: No signs of respiratory distress. Lung sounds are clear in all lobes bilaterally without rales, rhonchi, or wheezes. Abdominal: Abdomen is soft, non-tender without distention. Bowel sounds are present and normoactive in all four quadrants. Extremities: Upper and lower extremities are atraumatic in appearance without deformity or edema. Neurological: The patient is awake, alert and oriented to person, place, and time with normal speech. Speech is clear. Psychiatric: Appropriate mood and affect. Good judgement and insight. Review of Systems: REVIEW OF SYSTEMS: No fever, no chills, or fatigue HEENT: No sore throat, no earache, no congestion, no neck pain. Cardiac: No chest pain. Positive palpitations. Lungs: No shortness of breath, no cough. GI: No nausea, no vomiting, no diarrhea, no constipation, no abdominal pain : No dysuria, frequency, or urgency. No hematuria. Musculoskeletal: No joint pain , no joint swelling, no extremity edema. Skin: No rash, no itching. Neuro: No headache, no dizziness, no weakness Past Medical History PAST MEDICAL HISTORY: Asthma, COPD, DM, HTN, VA Surgical History: GEOGRAPHY HEAD History: No Pertinent GEOGRAPHY HEAD History Family History Family History: Reviewed,noncontributory to illness Social History Smoker: Non-Smoker Alcohol: Occasionally Drugs: Denies Drug Use Lives In: Home EKG EKG #1: Pulse Rate (adult): 157 [place]: RAD Cardiac Rhythm: ST Comments supraventricular tachycardia, Right axis deviation. ST depression. No STEMI. EKG #2: Pulse Rate (adult): 95 [place]: RAD Cardiac Rhythm: ST Comments sinus tachycardia. atrial premature complexes in couplets. Right axis deviation. No STEMI Was a procedure done? Was a procedure done?: No CP Differential Dx Differential Diagnosis: A-Flutter, Angina, Anxiety / Panic Attack, Electrolyte Disorder, Heart Failure, MAT, VA, Pacemaker Malfunction, PSVT, Pulmonary Embolus, PVC's, Renal Failure, Sinus Tachycardia, Ventricular Dysrhythmia, Other Differential Diagnosis: CHF X-Ray, Labs, Meds, VS Vital Signs Date Time Temp Pulse Resp B/P (MAP) Pulse Ox O2 Delivery O2 Flow Rate FiO2 10/28/24 02:00 86 25 94/57 (69) 97 10/28/24 00:30 100/55 10/28/24 00:00 106/65 10/28/24 00:00 155 29 96/50 (65) 100 10/27/24 23:40 114/68 10/27/24 22:52 95 10/27/24 22:48 95 10/27/24 22:45 157 10/27/24 22:34 158 10/27/24 22:33 157 10/27/24 22:30 98.1 101 21 102/55 (71) 96 98.1 10/27/24 22:30 101 21 96 Nasal Cannula* 2 28 10/27/24 22:28 98.1 160 18 145/96 (112) 94 98.1 Lab Test 10/28/24 02:00 10/28/24 00:15 10/28/24 00:04 10/27/24 23:10 Range/Units Troponin I High Sensitivity 72 *H 68 *H 49 *H </=34 ng/L Urine Color Colorless Yellow Urine Clarity Turbid H Clear Urine pH 6.0 5.0-9.0 Urine Specific [place] 1.006 1.001-1.035 Urine Protein Negative Negative Urine Ketones Negative Negative Urine Blood Negative Negative /uL Urine Nitrite Negative Negative Urine Bilirubin Negative Negative Urine Urobilinogen Normal Negative mg/dL Urine Leukocyte Esterase Negative Negative /uL Urine RBC <1 0 - 4 /hpf Urine Microscopic WBC < 1 0-5 /HPF Urine Squamous Epithelial Cells None seen <5 /hpf Urine Bacteria None seen None Seen /hpf Urine Glucose Normal Normal mg/dL White Blood Count 7.0 4.4-10.8 10^3/uL Red Blood Count 5.27 H 4.0-5.20 10^6/uL Hemoglobin 13.8 12.2-16.2 g/dL Hematocrit 42.3 36.0-46.0 % Mean Corpuscular Volume 80.2 80.0-100.0 fL Mean Corpuscular Hemoglobin 26.3 L 28.0-32.0 pg Mean Corpuscular Hemoglobin Concent 32.8 32.0-36.0 g/dL Red Cell Distribution Width 16.3 H 11.8-14.3 % Platelet Count 151 140-450 10^3/uL Mean Platelet Volume 7.8 6.9-10.8 fL Neutrophils (%) (Auto) 69.2 37.0-80.0 % Lymphocytes (%) (Auto) 20.2 10.0-50.0 % Monocytes (%) (Auto) 9.2 0.0-12.0 % Eosinophils (%) (Auto) 0.9 0.0-7.0 % Basophils (%) (Auto) 0.5 0.0-2.0 % Neutrophils # (Auto) 4.9 1.6-8.6 10 ^3/uL Lymphocytes # (Auto) 1.4 0.4-5.4 10 ^3/uL Monocytes # (Auto) 0.6 0-1.3 10 ^3/uL Eosinophils # (Auto) 0.1 0-0.8 10 ^3/uL Basophils # (Auto) 0 0-0.2 10 ^3/uL Nucleated Red Blood Cells 0.1 % Sodium Level 141 136-145 mmol/L Potassium Level 3.5 3.5-5.1 mmol/L Chloride Level 108 H 98-107 mmol/L Carbon Dioxide Level 24 20-31 mmol/L Anion Gap 9 5-15 Blood Urea Nitrogen 14 9-23 mg/dL Creatinine 0.72 0.550-1.02 mg/dL Glomerular Filtration Rate Calc 89 >90 mL/min BUN/Creatinine Ratio 19.4 10.0-20.0 Serum Glucose 133 H 74-106 mg/dL Calcium Level 9.5 8.7-10.4 mg/dL Total Bilirubin 0.3 0.2-1.0 mg/dL Aspartate Amino Transferase (AST) 17 13-40 U/L Alanine Aminotransferase (ALT) 21 7-40 U/L Alkaline Phosphatase 83 46-116 U/L Total Protein 6.6 5.7-8.2 g/dL Albumin 4.1 3.2-4.8 g/dL Thyroid Stimulating Hormone (TSH) 0.87 0.55-4.78 uIU/mL Current Medications Medications (Trade) Dose Ordered Sig/Vee Route Start Time Stop Time Status Last Admin Diltiazem HCl (Cardizem Injection) 10 mg ONCE ONCE IV 10/27/24 23:30 10/27/24 23:31 DC 4/16/25 23:34 Diltiazem HCl 125 ml @ 5 mls/hr Q24H ONCE IV 10/27/24 23:30 10/28/24 23:29 10/27/24 23:40 Sodium Chloride 1,000 ml @ 130 mls/hr Q7H42M ONCE IV 10/28/24 00:30 10/28/24 08:11 10/28/24 00:28 [place] [id number] Ph: [phone] DIAGNOSTIC IMAGING Diagnostic Imaging Report : [id number] Signed PATIENT: CINDY LOZANO ACCT: [id number] UNIT: [id number] : 1955 LOC: ER ROOM / BED: / AGE / SEX: 69 / F ADM STATUS: REG ER SERVICE 53 ORDERING PHYSICIAN: BRUNO BERNARDO MD PROCEDURE(s): CXR1 - CHEST XRAY 1 VIEW REASON: Palpitations ORDER NUMBER(s): [id number], ACCESSION NUMBER(s): [id number] CHEST RADIOGRAPH Indication: Palpitations Technique: Single frontal view of the chest was obtained Comparison: XY CHEST PORTABLE on DOS: 09/07/24 CT of the chest of September 07, 2024 FINDINGS: Patient has large calcified granulomas in the mediastinum. There is cardiomegaly in the right heart is larger than the left heart.5 pulmonary arteries are enlarged. There is also interstitial prominence suggesting early interstitial lung disease. Prior CT there is a spiculated nodule lateral left lower lobe. No acute infiltrates or effusions are seen IMPRESSION: 1. Old granulomatous disease, early interstitial lung disease and enlarged pulmonary arteries and cardiomegalyNo interval Change with respect to prior study of August 2024 ATED BY: ISAK REYEZ MD DICTATED DATE/TIME: 10/27/242329 SIGNED BY: ISAK REYEZ MD SIGNED DATE/TIME: 10/27/242329 CC: Time of 1ST Reevaluation: 23:02 Reevaluation 1ST: Unchanged Patient Education/Counseling: Other (Need for admission) Family Education/Counseling: No Family Present Departure 1 Departure Time of Disposition: 01:58 Impression: Primary Impression: SVT (supraventricular tachycardia) Disposition: 09 ADMITTED INPATIENT Condition: Stable Comments 69-year-old female who presented to the emergency department via EMS in SVT with a rate of 150s. Patient was given single dose of adenosine conversion. Patient is started on Cardizem bolus and drip in the ED. Heart rate improved. Patient admitted to hospitalist service for further treatment, evaluation and monitoring. [place] authorization for admission at this facility # [id number]. Discussed with Dr. Rosas @[id number] Extensive evaluation was performed in attempt to identify or rule out: (See differential diagnosis section) The following tests were ordered, and results were reviewed by me and discussed with patient: (See diagnostic results section) The following test were independently interpreted by me: EKG I reviewed and agreed with the following test results read by other providers: N/A I reviewed the following notes from the pt's past medical encounters: Previous visit September 2024 for low heart rate, abnormal EKG, Pac Additional information was gathered from interviewing the following independent historians: EMS personnel Discussion of management or test interpretation with external physician/other qualified health physician assistant primary care: N/A Addressed an acute or chronic illness that poses a threat to life or bodily function: SVT Decision regarding hospitalization or escalation of hospital level of care: Risk and benefits of admission for further treatment of patient's condition was considered. Due to patient's current clinical condition, high risk of decline and poor outcome if discharged and need for further inpatient management and monitoring, patient will be admitted to the hospital. Drug therapy requiring intensive monitoring for toxicity: IV Cardizem Parenteral controlled substances: N/A Decision regarding elective major surgery with identified patient or procedure risk factors: N/A Decision regarding emergency major surgery: N/A Decision not to resuscitate or to de-escalate care because of poor prognosis: N/A Diagnosis or treatment significantly limited by social determinants of health: N/A Critical Care Note Critical Care Time?: Yes (35 min-critical care time only) Critical care comment: Due to a high probability of clinically significant, life threatening deterioration, the patient required my highest level of preparedness to intervene emergently and I personally spent this critical care time directly and personally managing the patient. This critical care time included obtaining a history; examining the patient; pulse oximetry; ordering and review of studies; arranging urgent treatment with development of a management plan; evaluation of patient's response to treatment; frequent reassessment; and, discussions with other providers. This critical care time was performed to assess and manage the high probability of imminent, life-threatening deterioration that could result in multi-organ failure. It was exclusive of separately billable procedures and treating other patients and teaching time. Please see my other sections and the rest of the note for further information on patient assessment and treatment. Stability Stability form required: No Heart Score Heart Score: Heart Score Response (Comments) Value History N/A 0 EKG N/A 0 Age N/A 0 Risk Factors N/A 0 Troponin N/A 0 Total 0 I personally scribed for BRUNO BERNARDO MD ([email or web address]) on 10/27/24 at 22:45. Electronically submitted by Cassie Kinsey ([email or web address]). I personally scribed for BRUNO BERNARDO MD ([email or web address]) on 10/27/24 at 22:52. Electronically submitted by Cassie Kinsey ([email or web address]). I personally scribed for BRUNO BERNARDO MD ([email or web address]) on 10/27/24 at 23:45. Electronically submitted by Cassie Kinsey ([email or web address]). BRUNO BERNARDO MD Oct 27, 2024 22:45
[2024-10-27 23:22] LABS: Basophils # (auto) 0 10 ^3/uL (0-0.2); Eosinophils # (auto) 0.1 10 ^3/uL (0-0.8); Hemoglobin 13.8 g/dL (12.2-16.2); Mean Corpuscular Hgb Conc. 32.8 g/dL (32.0-36.0); Monocytes # (auto) 0.6 10 ^3/uL (0-1.3); Neutrophils # (auto) 4.9 10 ^3/uL (1.6-8.6); Nucleated Red Blood Cells % 0.1 %
[2024-10-27 23:24] LABS: Basophils % (auto) 0.5 % (0.0-2.0); Eosinophils % (auto) 0.9 % (0.0-7.0); Hematocrit 42.3 % (36.0-46.0); Lymphocytes # (auto) 1.4 10 ^3/uL (0.4-5.4); Lymphocytes % (auto) 20.2 % (10.0-50.0); Mean Corpuscular Hemoglobin 26.3 pg (28.0-32.0); Mean Corpuscular Volume 80.2 fL (80.0-100.0); Monocytes % (auto) 9.2 % (0.0-12.0); Neutrophils % (auto) 69.2 % (37.0-80.0); Platelet Count (auto) 151 10^3/uL (140-450); Red Blood Cells 5.27 10^6/uL (4.0-5.20); Red Cell Distribution Width 16.3 % (11.8-14.3)
--- NOTE | 2024-10-27 23:33 | DVH ---
CHEST RADIOGRAPH Indication: Palpitations Technique: Single frontal view of the chest was obtained Comparison: XY CHEST PORTABLE on DOS: 09/07/24 CT of the chest of September 07, 2024 FINDINGS: Patient has large calcified granulomas in the mediastinum. There is cardiomegaly in the right heart i s larger than the left heart.5 pulmonary arteries are enlarged. There is also interstitial prominence suggesting early interstitial lung disease. Prior CT there is a spiculated nodule lateral left lower lobe. No acute infiltrates or effusions are seen IMPRESSION: 1. Old granulomatous disease, early interstitial lung disease and enlarged pulmonary arteries and car diomegalyNo interval Change with respect to prior study of August 2024
[2024-10-27] MEDS: dilTIAZem 125mg/125ml BAG KIT 125 ML IV ONE (23:40)
[2024-10-27 23:45] LABS: Alanine Aminotransferase 21 U/L (7-40); Alkaline Phosphatase 83 U/L (46-116); Anion Gap 9 (5-15); Aspartate Aminotransferase 17 U/L (13-40); BUN/Creatinine Ratio 19.4 (10.0-20.0); Blood Urea Nitrogen 14 mg/dL (9-23); Calcium 9.5 mg/dL (8.7-10.4); Carbon Dioxide 24 mmol/L (20-31); Sodium 141 mmol/L (136-145); Total Protein 6.6 g/dL (5.7-8.2)
[2024-10-27 23:46] LABS: Albumin 4.1 g/dL (3.2-4.8); Bilirubin, Total 0.3 mg/dL (0.2-1.0)
[2024-10-27 23:49] LABS: Chloride 108 mmol/L (98-107); Glucose 133 mg/dL (74-106); Potassium 3.5 mmol/L (3.5-5.1)
[2024-10-28] VITALS (10 sets, daily range): BP systolic 110–131; BP diastolic 52–56; PULSE 72–93; RESP 16–26; TEMP 98.1–98.5; O2SAT 94–100
[2024-10-28 00:12] LABS: Urine Bacteria None Seen /hpf (None Seen)
[2024-10-28] MEDS: SODIUM CHLORIDE 0.9% 1,000 ML IV ONE (00:28)
[2024-10-28 00:37] LABS: Urine Blood Negative /uL (Negative); Urine Clarity Turbid (Clear); Urine Color Colorless (Yellow); Urine Protein, UAD Negative (Negative); Urine Specific Gravity 1.006 (1.001-1.035); Urine Squamous Epithelial Cell None Seen /hpf (<5); Urine Urobilinogen Normal (Negative)
[2024-10-28 01:10] LABS: Urine WBC < 1 /HPF (0-5)
--- NOTE | 2024-10-28 02:04 | ECG ---
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
--- NOTE | 2024-10-28 02:04 | ECG ---
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
--- NOTE | 2024-10-28 03:50 | DVHHPRES ---
History of Present Illness Resident Creating Document: MODESTA PEREYRA RESIDENT History of Present Illness 69 F with PMH of multifocal pneumonia, COPD, , hemorrhoids, asthma, left lung nodule, Emphysema of the lung, Diabetes mellitus type II presented with complaints of elevated heart rate around 170s that started around 0800 hours in the morning after which it got spontaneously resolved and later patient's heart rate was in 60-100 which was later 55 but patient in started having heart rate in 170s and then she decided to come to the hospital she mentioned associated palpitation but no other symptoms of chest pain, shortness of breath, dizziness, headache, cough, weakness, malaise, fever, chills. In the ER, patient was started on diltiazem by the ER physician after which her heart rate converted to sinus rhythm. On evaluation patient was on 2 L of oxygen which is her home oxygen level but did not have any other active complaints. Last echo : Severe tricuspid regurgitation with a right ventricular systolic pressure of73 mmHg consistent with severe pulmonary hypertension Concentric LVH with biatrial enlargement. RV enlargement. Valves are normal. EF of 55% with normal RV function. PMH hemorrhoids asthma left lung nodule Emphysema of the lung Diabetes mellitus type II ?CO Medication history albuterol ipratropium montelukast PSH Denied recent surgery Social history Mentioned active smoker takes five cigarettes per day, for last 15 years, used t o drink three beers every day, quit in July 2024, denied marijuana or any other drug intake Review of Systems Allergies: Coded Allergies: NO KNOWN ALLERGIES (Unverified , 08/11/19) Exam Vital Signs Vital Signs Date Time Temp Pulse Resp B/P (MAP) Pulse Ox O2 Delivery O2 Flow Rate FiO2 10/28/24 02:00 86 25 94/57 (69) 97 10/27/24 22:30 98.1 98.1 10/27/24 22:30 Nasal Cannula* 2 28 Labs/Xrays Labs Test 10/28/24 02:00 10/28/24 00:04 10/27/24 23:10 Range/Units Troponin I High Sensitivity 72 *H </=34 ng/L Urine Color Colorless Yellow Urine Clarity Turbid H Clear Urine pH 6.0 5.0-9.0 Urine Specific [place] 1.006 1.001-1.035 Urine Protein Negative Negative Urine Ketones Negative Negative Urine Blood Negative Negative /uL Urine Nitrite Negative Negative Urine Bilirubin Negative Negative Urine Urobilinogen Normal Negative mg/dL Urine Leukocyte Esterase Negative Negative /uL Urine RBC <1 0 - 4 /hpf Urine Microscopic WBC < 1 0-5 /HPF Urine Squamous Epithelial Cells None seen <5 /hpf Urine Bacteria None seen None Seen /hpf Urine Glucose Normal Normal mg/dL White Blood Count 7.0 4.4-10.8 10^3/uL Red Blood Count 5.27 H 4.0-5.20 10^6/uL Hemoglobin 13.8 12.2-16.2 g/dL Hematocrit 42.3 36.0-46.0 % Mean Corpuscular Volume 80.2 80.0-100.0 fL Mean Corpuscular Hemoglobin 26.3 L 28.0-32.0 pg Mean Corpuscular Hemoglobin Concent 32.8 32.0-36.0 g/dL Red Cell Distribution Width 16.3 H 11.8-14.3 % Platelet Count 151 140-450 10^3/uL Mean Platelet Volume 7.8 6.9-10.8 fL Neutrophils (%) (Auto) 69.2 37.0-80.0 % Lymphocytes (%) (Auto) 20.2 10.0-50.0 % Monocytes (%) (Auto) 9.2 0.0-12.0 % Eosinophils (%) (Auto) 0.9 0.0-7.0 % Basophils (%) (Auto) 0.5 0.0-2.0 % Neutrophils # (Auto) 4.9 1.6-8.6 10 ^3/uL Lymphocytes # (Auto) 1.4 0.4-5.4 10 ^3/uL Monocytes # (Auto) 0.6 0-1.3 10 ^3/uL Eosinophils # (Auto) 0.1 0-0.8 10 ^3/uL Basophils # (Auto) 0 0-0.2 10 ^3/uL Nucleated Red Blood Cells 0.1 % Sodium Level 141 136-145 mmol/L Potassium Level 3.5 3.5-5.1 mmol/L Chloride Level 108 H 98-107 mmol/L Carbon Dioxide Level 24 20-31 mmol/L Anion Gap 9 5-15 Blood Urea Nitrogen 14 9-23 mg/dL Creatinine 0.72 0.550-1.02 mg/dL Glomerular Filtration Rate Calc 89 >90 mL/min BUN/Creatinine Ratio 19.4 10.0-20.0 Serum Glucose 133 H 74-106 mg/dL Calcium Level 9.5 8.7-10.4 mg/dL Total Bilirubin 0.3 0.2-1.0 mg/dL Aspartate Amino Transferase (AST) 17 13-40 U/L Alanine Aminotransferase (ALT) 21 7-40 U/L Alkaline Phosphatase 83 46-116 U/L Total Protein 6.6 5.7-8.2 g/dL Albumin 4.1 3.2-4.8 g/dL Thyroid Stimulating Hormone (TSH) 0.87 0.55-4.78 uIU/mL Assessment/Plan Assessment/Plan Assessement and Plan #SVT, resolved now sinus rhythm -EKG, trops -echo -on diltiazem drip, later was discontinued -keep k>4, mag>2 -cardiology consult #Old granulomatous disease #early interstitial lung disease -seen on imaging -continue home o2 -duonebs prn #enlarged pulmonary arteries #cardiomegaly # Severe tricuspid regurgitation # severe pulmonary hypertension -seen on imaging -seen on last echo #COPD #asthma -stable, continue home meds -duonebs PRN #NSTEMI likely type II likely due to SVT -monitor -kg, tropes #hemorrhoids -no active complaints #left lung nodule seen on previous imaging #Diabetes mellitus type II -sliding scale insulin Case discussion with dr champagne Plan discussed with: Patient, Other Date of Service: Oct 28, 2024 Billing Provider: MARIA L CHAMPAGNE MD Common Visit Codes: 90223-[id number] INP/OBS CARE (HIGH) Secondary Visit Codes: 56242-[id number] CARE PLAN 30 MINUTES MODESTA PEREYRA RESIDENT Oct 28, 2024 03:50 MARIA L CHAMPAGNE MD Oct 28, 2024 19:14
[2024-10-28] MEDS ORDERED: DEXTROSE (50%) 50ML SYRG IV PRN ×2 (05:00→09:00)
[2024-10-28 05:04] LABS: Basophils # (auto) 0 10 ^3/uL (0-0.2); Basophils % (auto) 0.6 % (0.0-2.0); Eosinophils # (auto) 0.1 10 ^3/uL (0-0.8); Hemoglobin 12.4 g/dL (12.2-16.2); Lymphocytes # (auto) 1.5 10 ^3/uL (0.4-5.4); Monocytes # (auto) 0.6 10 ^3/uL (0-1.3); Neutrophils # (auto) 3.9 10 ^3/uL (1.6-8.6); White Blood Cell 6.1 10^3/uL (4.4-10.8)
[2024-10-28 05:05] LABS: Eosinophils % (auto) 1.1 % (0.0-7.0); Hematocrit 39.3 % (36.0-46.0); Lymphocytes % (auto) 24.6 % (10.0-50.0); Mean Corpuscular Hemoglobin 25.7 pg (28.0-32.0); Mean Corpuscular Hgb Conc. 31.7 g/dL (32.0-36.0); Monocytes % (auto) 9.7 % (0.0-12.0); Nucleated Red Blood Cells % 0.1 %; Platelet Count (auto) 146 10^3/uL (140-450); Red Blood Cells 4.85 10^6/uL (4.0-5.20); Red Cell Distribution Width 16.5 % (11.8-14.3)
[2024-10-28 05:22] LABS: Alanine Aminotransferase 19 U/L (7-40); Alkaline Phosphatase 68 U/L (46-116); Anion Gap 6 (5-15); BUN/Creatinine Ratio 16.9 (10.0-20.0); Blood Urea Nitrogen 11 mg/dL (9-23); Calcium 8.9 mg/dL (8.7-10.4); Carbon Dioxide 24 mmol/L (20-31); Magnesium 1.8 mg/dL (1.6-2.6); Potassium 3.7 mmol/L (3.5-5.1); Sodium 143 mmol/L (136-145); Total Protein 5.8 g/dL (5.7-8.2)
[2024-10-28 05:23] LABS: Albumin 3.6 g/dL (3.2-4.8); Aspartate Aminotransferase 15 U/L (13-40); Bilirubin, Total 0.4 mg/dL (0.2-1.0)
[2024-10-28 05:59] LABS: Amphetamine Screen, Urine Neg (NEGATIVE); Barbiturate Scree,Urine Neg (NEGATIVE); Benzodiazephine Screen, Urine Neg (NEGATIVE); Cannabinoid Screen, Urine Neg (NEGATIVE); Cocaine Screen, Urine Neg (NEGATIVE); Opiate Scree,Urine Neg (NEGATIVE); Phencyclidine Screen, Urine Neg (NEGATIVE)
[2024-10-28] MEDS: InsuLIN REG 1unit/0.01ml Soln (100units/ml) SC SCH ×2 (06:00→11:30)
[2024-10-28 06:06] LABS: Chloride 113 mmol/L (98-107); Glucose 113 mg/dL (74-106)
[2024-10-28] MEDS: POTASSIUM EFFERVESENT TAB 25 MEQ PO ONE (06:23)
[2024-10-28] MEDS: ACCU-CHEK COMFORT CURVE STRIP VI SCH ×2 (06:27→12:06)
[2024-10-28] MEDS: ALBUTEROL SULF 2.5 MG/0.5ML(0.5%) NEB SOLN NEB PRN (07:51)
[2024-10-28] MEDS ORDERED: ACCU-CHEK COMFORT CURVE STRIP VI ONE (08:45)
[2024-10-28] MEDS ORDERED: InsuLIN REG 1unit/0.01ml Soln (100units/ml) SC ONE (08:45)
[2024-10-28 09:33] LABS: Triglycerides 45 mg/dL (< 150)
[2024-10-28 09:34] LABS: LDL Cholesterol 19 mg/dL (< 100)
[2024-10-28 09:35] LABS: Cholesterol 129 mg/dL (< 200)
[2024-10-28 09:38] LABS: HDL Cholesterol 85 mg/dL (40-59)
--- NOTE | 2024-10-28 10:21 | DVHINCON2 ---
Date Seen: Oct 28, 2024 Referring Physician MD [place] resident Reason for Consultation SVT History of Present Illness This is a 69-year-old female patient who presents to the emergency room for chief complaint of elevated pulse. The patient reports that she was sitting at home watching TV and decided to check her oxygen level with her pulse oximeter. The patient reports being surprised to see that her heart rate was fluctuating as high as 170's. She denies any cardiac symptoms such as chest pain, shortness of breath, or palpitations. She decided to come to the emergency room for further evaluation. Initial twelve lead electrocardiogram reveals atrial fibrillation (machine reads SVT). The patient was given diltiazem 10 mg IV push once followed by a diltiazem drip per emergency room provider. At time of assessment, the patient was back in normal sinus rhythm and off of diltiazem drip. Initial troponin level of 49ng/L with flat trend thereafter. Significant past medical history includes COPD with home oxygen dependence, asthma, type 2 diabetes mellitus, alcohol use, and tobacco use. Past Medical History Past medical history reviewed. No other significant than mentioned above. Past Surgical History Family History: Patient reports no known family medical history. Family History Family history reviewed. Social History Patient has a 25 pack-year history Patient drinks approximately three beers daily Denies any illicit drug use Allergies: Coded Allergies: NO KNOWN ALLERGIES (Unverified , 08/11/19) Home Meds Reported Medications Albuterol Sulfate (Ventolin) 2 Mg/5 Ml Sr, 5 ML PO TID, #150 ML 09/08/24 Tiotropium [place] Monohydrate (Spiriva Handihaler) 18 Mcg Cap, 18 MCG IN, CAP 09/08/24 Montelukast Sodium (Singulair) 4 Mg Chw, 1 TAB PO DAILY, #30 TAB 5 Refills 09/08/24 Ipratropium [place] Hfa (Atrovent Hfa) 17 Mcg Aer, 2 PUFF INH QID, #12.9 GRAMS 5 Refills 09/08/24 Home Meds Home medications reviewed. Current Medications Current Medications Medications (Trade) Dose Ordered Sig/Vee Route PRN Reason Start Time Stop Time Status Last Admin Albuterol (Ventolin Medneb) 2.5 mg Q4HPRN PRN NEB SHORTNESS OF BREATH 10/28/24 04:45 10/28/24 07:51 Ipratropium [place] (Atrovent Medneb) 0.5 mg Q4HPRN PRN NEB SHORTNESS OF BREATH 10/28/24 04:45 Diagnostic Test (Pha) (Accu-Chek Comfort Curve T) 1 strip Q6HR 10/28/24 06:00 10/28/24 09:02 DC 10/28/24 06:27 Insulin Human Regular (InsuLIN R) Q6HR SC 10/28/24 06:00 10/28/24 08:46 DC Dextrose 50 ml UD PRN IV Blood Sugar LESS THAN 60 10/28/24 05:00 10/28/24 09:02 DC Diagnostic Test (Pha) (Accu-Chek Comfort Curve T) 1 strip ACHS 10/28/24 11:30 Insulin Human Regular (InsuLIN R) ACHS SC 10/28/24 11:30 Dextrose 50 ml UD PRN IV Blood Sugar LESS THAN 60 10/28/24 09:00 Review of Systems Constitutional: No symptom reported Ears, Nose, & Throat: No symptom reported Eyes: No symptom reported Neurological: No symptoms reported Pulmonary/Respiratory: No symptoms reported Cardiovascular: No symptom reported Gastrointestinal: No symptom reported Genitourinary: No symptom reported Musculoskeletal: No symptom reported Skin: No symptom reported Psychiatric: No symptom reported Endocrine: No symptom reported Hematologic/Lymphatic: No symptom reported Vital Signs Vital Signs Date Time Temp Pulse Resp B/P (MAP) Pulse Ox O2 Delivery O2 Flow Rate FiO2 10/28/24 09:55 97.7 79 19 106/54 (71) 97 97.7 10/28/24 07:51 Nasal Cannula 2.0 10/28/24 07:51 28 Physical Exam General Appearance: Cooperative. Well-developed. Well-nourished. No acute distress. Pulmonary/Respiratory: Clear, bilateral breaths sounds. Cardiovascular/Chest: Regular rate and rhythm. Peripheral Pulses: 2+ Radial (R). 2+ Radial (L). 2+ Pedal (R). 2+ Pedal (L) Abdominal Exam: Normal bowel sounds. Ankle Exam: Negative ankle edema Lower extremities: Negative lower extremity edema Neuro/Mental Status: A/OX4, coherent. Thoughts/Psych: Normal thought pattern. Appropriate mood and affect. Good judgment and insight. Appearance: No acute distress. Skin Exam: Normal inspection. Normal color. Warm and dry. Labs/Diagnostic Data Labs Test 10/28/24 08:47 10/28/24 06:25 10/28/24 04:51 10/28/24 00:04 Range/Units Troponin I High Sensitivity 59 *H </=34 ng/L POC Glucose 104 70-106 mg/dl White Blood Count 6.1 4.4-10.8 10^3/uL Red Blood Count 4.85 4.0-5.20 10^6/uL Hemoglobin 12.4 12.2-16.2 g/dL Hematocrit 39.3 36.0-46.0 % Mean Corpuscular Volume 81.0 80.0-100.0 fL Mean Corpuscular Hemoglobin 25.7 L 28.0-32.0 pg Mean Corpuscular Hemoglobin Concent 31.7 L 32.0-36.0 g/dL Red Cell Distribution Width 16.5 H 11.8-14.3 % Platelet Count 146 140-450 10^3/uL Mean Platelet Volume 7.9 6.9-10.8 fL Neutrophils (%) (Auto) 64.0 37.0-80.0 % Lymphocytes (%) (Auto) 24.6 10.0-50.0 % Monocytes (%) (Auto) 9.7 0.0-12.0 % Eosinophils (%) (Auto) 1.1 0.0-7.0 % Basophils (%) (Auto) 0.6 0.0-2.0 % Neutrophils # (Auto) 3.9 1.6-8.6 10 ^3/uL Lymphocytes # (Auto) 1.5 0.4-5.4 10 ^3/uL Monocytes # (Auto) 0.6 0-1.3 10 ^3/uL Eosinophils # (Auto) 0.1 0-0.8 10 ^3/uL Basophils # (Auto) 0 0-0.2 10 ^3/uL Nucleated Red Blood Cells 0.1 % Sodium Level 143 136-145 mmol/L Potassium Level 3.7 3.5-5.1 mmol/L Chloride Level 113 H 98-107 mmol/L Carbon Dioxide Level 24 20-31 mmol/L Anion Gap 6 5-15 Blood Urea Nitrogen 11 9-23 mg/dL Creatinine 0.65 0.550-1.02 mg/dL Glomerular Filtration Rate Calc 94 >90 mL/min BUN/Creatinine Ratio 16.9 10.0-20.0 Serum Glucose 113 H 74-106 mg/dL Hemoglobin A1c 7.8 H <5.7 % A1C Calcium Level 8.9 8.7-10.4 mg/dL Magnesium Level 1.8 1.6-2.6 mg/dL Total Bilirubin 0.4 0.2-1.0 mg/dL Aspartate Amino Transferase (AST) 15 13-40 U/L Alanine Aminotransferase (ALT) 19 7-40 U/L Alkaline Phosphatase 68 46-116 U/L B-Type Natriuretic Peptide 69.09 0-100 pg/mL Total Protein 5.8 5.7-8.2 g/dL Albumin 3.6 3.2-4.8 g/dL Triglycerides Level 45 < 150 mg/dL Cholesterol Level 129 < 200 mg/dL LDL Cholesterol 19 < 100 mg/dL HDL Cholesterol 85 H 40-59 mg/dL Thyroid Stimulating Hormone (TSH) 0.89 0.55-4.78 uIU/mL Urine Color Colorless Yellow Urine Clarity Turbid H Clear Urine pH 6.0 5.0-9.[address] [place] 1.006 1.001-1.035 Urine Protein Negative Negative Urine Ketones Negative Negative Urine Blood Negative Negative /uL Urine Nitrite Negative Negative Urine Bilirubin Negative Negative Urine Urobilinogen Normal Negative mg/dL Urine Leukocyte Esterase Negative Negative /uL Urine RBC <1 0 - 4 /hpf Urine Microscopic WBC < 1 0-5 /HPF Urine Squamous Epithelial Cells None seen <5 /hpf Urine Bacteria None seen None Seen /hpf Urine Glucose Normal Normal mg/dL Urine Opiates Screen Neg NEGATIVE Urine Fentanyl Screen Neg NEGATIVE Urine Barbiturates Screen Neg NEGATIVE Urine Phencyclidine Screen Neg NEGATIVE Urine Amphetamines Screen Neg NEGATIVE Urine Benzodiazepines Screen Neg NEGATIVE Urine Cocaine Screen Neg NEGATIVE Urine Cannabinoids Screen Neg NEGATIVE Assessment Atrial fibrillation with rapid ventricular response, new onset NSTEMI, type II secondary to above Severe pulmonary hypertension Severe tricuspid regurgitation COPD with home O2 use Asthma Type 2 diabetes mellitus Alcohol use Tobacco use Plan/Recommendation We will continue with the following plan/recommendations (): * Transthoracic echocardiogram from 09/09/2024 reveals LVEF 55% with severe tricuspid regurgitation and RVSP of 73 mmHg. * [id number] VASc score: 3 points, HAS-BLED: 1 point * Therapeutic Lovenox, transition to NOAC prior to discharge * Beta-lisa for rate control * Monitor and replete electrolytes as needed, keep potassium greater than four and magnesium greater than two * Close Cardiac surveillance Case discussed with . Thank you for allowing us to care for this patient. Please call with any questions or concerns. Critical care time spent: 44 minutes This medical document was created using an electronic medical record system with voice recognition software and computerized dictation system. Although this document has been carefully reviewed, there might still be some phonetic and typographical errors. Occasional wrong-word or ``sound-alike substitutions may have occurred due to the inherent limitations of voice recognition software. These areas are purely typographical due to imperfections of the software programs and do not reflect any compromise in the patient's medical care. Please read the chart carefully and recognize, using context, where these substitutions have occurred. Plan discussed with: Patient NYHA Physical activity limitations: NA Date of Service: Oct 28, 2024 Billing Provider: ALEM ANGELES Cardiology Common Codes: [id number] INP/OBS CARE (High) Cardiology Consultation Codes: [id number] CONSULT <45MIN ALEM ANGELES Oct 28, 2024 10:20
--- NOTE | 2024-10-28 15:01 | DVHPN2 ---
Progress Note Date Seen: Oct 28, 2024 Medical Necessity Reason Pt with a Central, PICC or Fol: No Subjective Patient reports: No new complaints Review of Systems: HEENT:Normal, CVS:Normal, RESPIRATORY:Normal, GI:Normal, :Normal, MSK:Normal, NEURO:Normal Objective vital signs Vital Sign Date Time Temp Pulse Resp B/P (MAP) Pulse Ox O2 Delivery O2 Flow Rate FiO2 10/28/24 11:51 88 20 101/48 (65) 98 10/28/24 09:55 97.7 97.7 10/28/24 07:51 Nasal Cannula 2.0 10/28/24 07:51 28 medications Current Medications Medications Dose Ordered Sig/Vee Route Start Time Stop Time Status Last Admin Dose Admin Albuterol 2.5 mg Q4HPRN PRN NEB 10/28/24 04:45 10/28/24 07:51 2.5 MG Ipratropium [place] 0.5 mg Q4HPRN PRN NEB 10/28/24 04:45 Diagnostic Test (Pha) 1 strip ACHS 10/28/24 11:30 10/28/24 12:06 1 STRIP Insulin Human Regular ACHS SC 10/28/24 11:30 Dextrose 50 ml UD PRN IV 10/28/24 09:00 Examination: GENERAL:Normal, HEENT:Normal, NECK:Normal, LUNGS:Normal, LUNGS:Abnormal (on oxygen), CVS:Normal, ABDOMEN:Normal, MSK:Normal, SKIN:Normal, NEURO:Normal, :Normal laboratory and microbiology Laboratory Tests 10/28/24 04:51 Test 10/28/24 04:51 Range/Units Serum Glucose 113 H 74-106 mg/dL Problem List/Assessment/Plan Problem List/Assessment/Plan #1 svt: cardio eval #2 nstemi ?type 2 #3 copd with chronic resp failure #4 pulmonary htn #5 dm: ssi #6 tobacco abuse: advised to quit, refused nicotine patch- time spent 11 mins advance care planning: full code- time spent-19 mins Plan discussed with: Patient Date of Service: Oct 28, 2024 Billing Provider: CHRISTOPHER PRADHAN MD Common Visit Codes: [id number] INP/OBS CARE(HIGH) Secondary Visit Codes: [id number] CHNG SMOKING >10MIN, [id number] CARE PLAN 30 MINUTES CHRISTOPHER PRADHAN MD Oct 28, 2024 15:01
[2024-10-28] MEDS: IPRATROPIUM BROM 0.5 MG/2.5ML INH SOL NEB PRN (16:44)
[2024-10-28] MEDS: ENOXAPARIN SOD 60 MG/0.6 ML SYRINGE SC ONE (20:04)
[2024-10-28] MEDS: MAGNESIUM SULFATE 1GM/100ML 100 ML IV ONE (20:04)
[2024-10-28] MEDS ORDERED: ATOR40TA52 PO (20:30)
[2024-10-28] MEDS ORDERED: PRED1PAK9 PO (20:30)
[2024-10-28] MEDS ORDERED: AZIT500T66 PO (20:30)
[2024-10-28] MEDS ORDERED: METF-370 PO (20:30)
[2024-10-28] MEDS: METOPROLOL TARTRATE 25 MG TAB PO SCH (21:34)
[2024-10-29] VITALS (10 sets, daily range): BP systolic 101–123; BP diastolic 56–72; PULSE 55–78; RESP 18–19; TEMP 97.5–98; O2SAT 0–100
[2024-10-29 07:49] LABS: Basophils # (auto) 0 10 ^3/uL (0-0.2); Eosinophils # (auto) 0.1 10 ^3/uL (0-0.8); Hemoglobin 13.6 g/dL (12.2-16.2); Lymphocytes # (auto) 1.3 10 ^3/uL (0.4-5.4); Monocytes # (auto) 0.5 10 ^3/uL (0-1.3); Neutrophils # (auto) 2.7 10 ^3/uL (1.6-8.6); White Blood Cell 4.6 10^3/uL (4.4-10.8)
[2024-10-29 07:51] LABS: Basophils % (auto) 0.4 % (0.0-2.0); Eosinophils % (auto) 2.3 % (0.0-7.0); Hematocrit 40.9 % (36.0-46.0); Lymphocytes % (auto) 27.3 % (10.0-50.0); Mean Corpuscular Hemoglobin 26.8 pg (28.0-32.0); Mean Corpuscular Hgb Conc. 33.2 g/dL (32.0-36.0); Mean Corpuscular Volume 80.9 fL (80.0-100.0); Monocytes % (auto) 11.1 % (0.0-12.0); Neutrophils % (auto) 58.9 % (37.0-80.0); Nucleated Red Blood Cells % 0.1 %; Platelet Count (auto) 151 10^3/uL (140-450); Red Blood Cells 5.06 10^6/uL (4.0-5.20); Red Cell Distribution Width 16.3 % (11.8-14.3)
[2024-10-29 07:57] LABS: Anion Gap 6 (5-15); Carbon Dioxide 29 mmol/L (20-31); Potassium 3.9 mmol/L (3.5-5.1); Sodium 144 mmol/L (136-145)
[2024-10-29 07:58] LABS: Calcium 9.7 mg/dL (8.7-10.4); Chloride 109 mmol/L (98-107)
[2024-10-29 08:03] LABS: BUN/Creatinine Ratio 12.3 (10.0-20.0); Glucose 91 mg/dL (74-106)
[2024-10-29 08:06] LABS: Blood Urea Nitrogen 9 mg/dL (9-23)
[2024-10-29] MEDS: ENOXAPARIN SOD 60 MG/0.6 ML SYRINGE SC SCH (09:49)
--- NOTE | 2024-10-29 10:22 | DVHPN2 ---
Reviewed: Care Plan, H&P, Labs, Medications, Previous Orders, Radiology Changes from previous H/P or p: No Changes General: Per HPI Objective Vitals Vital Signs Date Time Temp Pulse Resp B/P (MAP) Pulse Ox O2 Delivery O2 Flow Rate FiO2 10/29/24 09:49 72 110/64 10/29/24 09:00 98.0 18 100 98.0 10/29/24 05:53 Nasal Cannula 2.0 10/29/24 05:53 28 Intake/Output Intake and Output 10/29/24 07:00 Intake Total 1300 ml Balance 1300 ml Intake Oral 1200 ml IV Total 100 ml # Voids 3 # Bowel Movements 2 Medications Current Medications Medications Dose Ordered Sig/Vee Route Start Time Stop Time Status Last Admin Dose Admin Albuterol 2.5 mg Q4HPRN PRN NEB 10/28/24 04:45 10/28/24 16:43 2.5 MG Ipratropium [place] 0.5 mg Q4HPRN PRN NEB 10/28/24 04:45 Diagnostic Test (Pha) 1 strip ACHS 10/28/24 11:30 10/29/24 06:31 1 STRIP Insulin Human Regular ACHS SC 10/28/24 11:30 10/28/24 21:35 4 UNITS Dextrose 50 ml UD PRN IV 10/28/24 09:00 Metoprolol Tartrate 25 mg BID PO 10/28/24 22:00 10/29/24 09:49 25 MG Enoxaparin Sodium 60 mg Q12HR SC 10/29/24 10:00 10/29/24 09:49 60 MG Laboratory Results Laboratory Tests 10/29/24 07:01 Chemistry Test 10/29/24 07:01 Calcium Level 9.7 mg/dL (8.7-10.4) Urinalysis Test 10/28/24 00:04 Urine Color Colorless (Yellow) Urine Clarity Turbid (Clear) H Urine pH 6.0 (5.0-9.0) Urine Specific [place] 1.006 (1.001-1.035) Urine Protein Negative (Negative) Urine Ketones Negative (Negative) Urine Blood Negative /uL (Negative) Urine Nitrite Negative (Negative) Urine Bilirubin Negative (Negative) Urine Urobilinogen Normal mg/dL (Negative) Urine Leukocyte Esterase Negative /uL (Negative) Urine RBC <1 /hpf (0 - 4) Urine Microscopic WBC < 1 /HPF (0-5) Urine Squamous Epithelial Cells None seen /hpf (<5) Urine Bacteria None seen /hpf (None Seen) Urine Glucose Normal mg/dL (Normal) Assessment/Plan Assessment/Plan #1 svt: cardio eval #2 nstemi ?type 2 #3 copd with chronic resp failure #4 pulmonary htn #5 dm: ssi #6 tobacco abuse: advised to quit, refused nicotine patch- time spent 11 mins pending full work up per cardiology Plan discussed with: Patient Date of Service: Oct 29, 2024 Billing Provider: GOPI WAY DO Common Visit Codes: [id number] INP/OBS CARE(HIGH) GOPI WAY DO Oct 29, 2024 10:22
--- NOTE | 2024-10-29 15:24 | DVHPN2 ---
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 Objective vital signs Vital Sign Date Time Temp Pulse Resp B/P (MAP) Pulse Ox O2 Delivery O2 Flow Rate FiO2 10/29/24 10:49 74 101/56 10/29/24 10:00 96 Room Air 0.0 10/29/24 09:00 98.0 18 98.0 10/29/24 08:00 21 Total Intake and Output 10/28/24 10/28/24 10/29/24 15:00 23:00 07:00 Intake Total 100 ml 1200 ml Balance 100 ml 1200 ml medications Current Medications Medications Dose Ordered Sig/Vee Route Start Time Stop Time Status Last Admin Dose Admin Albuterol 2.5 mg Q4HPRN PRN NEB 10/28/24 04:45 10/28/24 16:43 2.5 MG Ipratropium [place] 0.5 mg Q4HPRN PRN NEB 10/28/24 04:45 Diagnostic Test (Pha) 1 strip ACHS 10/28/24 11:30 10/29/24 11:30 1 STRIP Insulin Human Regular ACHS SC 10/28/24 11:30 10/28/24 21:35 4 UNITS Dextrose 50 ml UD PRN IV 10/28/24 09:00 Metoprolol Tartrate 25 mg BID PO 10/28/24 22:00 10/29/24 09:49 25 MG Enoxaparin Sodium 60 mg Q12HR SC 10/29/24 10:00 10/29/24 09:49 60 MG Examination: GENERAL:Normal, LUNGS:Normal, CVS:Normal, NEURO:Normal laboratory and microbiology Laboratory Tests 10/29/24 07:01 Test 10/29/24 07:01 Range/Units Serum Glucose 91 74-106 mg/dL Problem List/Assessment/Plan Problem List/Assessment/Plan Atrial fibrillation with rapid ventricular response, new onset, now normal sinus rhythm NSTEMI, type II secondary to above Severe pulmonary hypertension Severe tricuspid regurgitation COPD with home O2 use Asthma Type 2 diabetes mellitus Alcohol use Tobacco use Plan/Recommendation (): * Transthoracic echocardiogram from 09/09/2024 reveals LVEF 55% with severe tricuspid regurgitation and RVSP of 73 mmHg. * [id number] VASc score: 3 points, HAS-BLED: 1 point * Therapeutic Lovenox while inpatient, transition to NOAC prior to discharge * Beta-lisa for rate control * Monitor and replete electrolytes as needed, keep potassium greater than four and magnesium greater than two * Close Cardiac surveillance Case discussed with . The patient denies any cardiac symptoms at time of assessment and remains in normal sinus rhythm without any events overnight. There is no further inpatient cardiac workup indicated at this time. The patient will need to establish a biological inspector within the [facility] and follow up within 1-2 weeks post discharge. Patient educated about the need for NOAC therapy to reduce risk for stroke. Patient also educated on beta-lisa for rate control. Patient also needs to follow up with Cardiology regarding severe tricuspid regurgitation found on previous echocardiogram. She verbalized understanding. Thank you for allowing us to care for this patient. Please call with any questions or concerns. This medical document was created using an electronic medical record system with voice recognition software and computerized dictation system. Although this document has been carefully reviewed, there might still be some phonetic and typographical errors. Occasional wrong-word or ``sound-alike substitutions may have occurred due to the inherent limitations of voice recognition software. These areas are purely typographical due to imperfections of the software programs and do not reflect any compromise in the patient's medical care. Please read the chart carefully and recognize, using context, where these substitutions have occurred. Plan discussed with: Patient Date of Service: Oct 29, 2024 Billing Provider: AELM ANGELES Common Visit Codes: [id number] INP/OBS CARE(HIGH) ALEM ANGELES Oct 29, 2024 15:24
[2024-10-30] VITALS (14 sets, daily range): BP systolic 100–117; BP diastolic 63–69; PULSE 55–86; RESP 17–19; TEMP 97.6–98.3; O2SAT 94–100
[2024-10-30] MEDS ORDERED: APIX5TAB PO (11:05)
[2024-10-30] MEDS ORDERED: MET25T PO (11:05)
--- NOTE | 2024-10-30 11:06 | DVHDS2 ---
Discharge Summary Date of Admission Oct 28, 2024 at 04:41 Date of Discharge: Oct 30, 2024 Labs/Diagnostic Data: Laboratory Results Test 10/30/24 06:13 10/29/24 07:01 10/28/24 11:41 10/28/24 04:51 POC Glucose 142 mg/dl (70-106) White Blood Count 4.6 10^3/uL (4.4-10.8) Red Blood Count 5.06 10^6/uL (4.0-5.20) Hemoglobin 13.6 g/dL (12.2-16.2) Hematocrit 40.9 % (36.0-46.0) Mean Corpuscular Volume 80.9 fL (80.0-100.0) Mean Corpuscular Hemoglobin 26.8 pg (28.0-32.0) Mean Corpuscular Hemoglobin Concent 33.2 g/dL (32.0-36.0) Red Cell Distribution Width 16.3 % (11.8-14.3) Platelet Count 151 10^3/uL (140-450) Mean Platelet Volume 7.9 fL (6.9-10.8) Neutrophils (%) (Auto) 58.9 % (37.0-80.0) Lymphocytes (%) (Auto) 27.3 % (10.0-50.0) Monocytes (%) (Auto) 11.1 % (0.0-12.0) Eosinophils (%) (Auto) 2.3 % (0.0-7.0) Basophils (%) (Auto) 0.4 % (0.0-2.0) Neutrophils # (Auto) 2.7 10 ^3/uL (1.6-8.6) Lymphocytes # (Auto) 1.3 10 ^3/uL (0.4-5.4) Monocytes # (Auto) 0.5 10 ^3/uL (0-1.3) Eosinophils # (Auto) 0.1 10 ^3/uL (0-0.8) Basophils # (Auto) 0 10 ^3/uL (0-0.2) Nucleated Red Blood Cells 0.1 % Sodium Level 144 mmol/L (136-145) Potassium Level 3.9 mmol/L (3.5-5.1) Chloride Level 109 mmol/L (98-107) Carbon Dioxide Level 29 mmol/L (20-31) Anion Gap 6 (5-15) Blood Urea Nitrogen 9 mg/dL (9-23) Creatinine 0.73 mg/dL (0.550-1.02) Glomerular Filtration Rate Calc 88 mL/min (>90) BUN/Creatinine Ratio 12.3 (10.0-20.0) Serum Glucose 91 mg/dL (74-106) Calcium Level 9.7 mg/dL (8.7-10.4) Troponin I High Sensitivity 50 ng/L (</=34) Hemoglobin A1c 7.8 % A1C (<5.7) Magnesium Level 1.8 mg/dL (1.6-2.6) Total Bilirubin 0.4 mg/dL (0.2-1.0) Aspartate Amino Transferase (AST) 15 U/L (13-40) Alanine Aminotransferase (ALT) 19 U/L (7-40) Alkaline Phosphatase 68 U/L (46-116) B-Type Natriuretic Peptide 69.09 pg/mL (0-100) Total Protein 5.8 g/dL (5.7-8.2) Albumin 3.6 g/dL (3.2-4.8) Triglycerides Level 45 mg/dL (< 150) Cholesterol Level 129 mg/dL (< 200) LDL Cholesterol 19 mg/dL (< 100) HDL Cholesterol 85 mg/dL (40-59) Thyroid Stimulating Hormone (TSH) 0.89 uIU/mL (0.55-4.78) Test 10/28/24 00:04 Urine Color Colorless (Yellow) Urine Clarity Turbid (Clear) Urine pH 6.0 (5.0-9.0) Urine Specific [place] 1.006 (1.001-1.035) Urine Protein Negative (Negative) Urine Ketones Negative (Negative) Urine Blood Negative /uL (Negative) Urine Nitrite Negative (Negative) Urine Bilirubin Negative (Negative) Urine Urobilinogen Normal mg/dL (Negative) Urine Leukocyte Esterase Negative /uL (Negative) Urine RBC <1 /hpf (0 - 4) Urine Microscopic WBC < 1 /HPF (0-5) Urine Squamous Epithelial Cells None seen /hpf (<5) Urine Bacteria None seen /hpf (None Seen) Urine Glucose Normal mg/dL (Normal) Urine Opiates Screen Neg (NEGATIVE) Urine Fentanyl Screen Neg (NEGATIVE) Urine Barbiturates Screen Neg (NEGATIVE) Urine Phencyclidine Screen Neg (NEGATIVE) Urine Amphetamines Screen Neg (NEGATIVE) Urine Benzodiazepines Screen Neg (NEGATIVE) Urine Cocaine Screen Neg (NEGATIVE) Urine Cannabinoids Screen Neg (NEGATIVE) Other Laboratory Tests 10/29/24 07:01 Brief Hx & Hospital Course: 69 F with PMH of multifocal pneumonia, COPD, , hemorrhoids, asthma, left lung nodule, Emphysema of the lung, Diabetes mellitus type II presented with complaints of elevated heart rate around 170s that started around 0800 hours in the morning after which it got spontaneously resolved and later patient's heart rate was in 60-100 which was later 55 but patient in started having heart rate in 170s and then she decided to come to the hospital she mentioned associated palpitation but no other symptoms of chest pain, shortness of breath, dizziness, headache, cough, weakness, malaise, fever, chills. In the ER, patient was started on diltiazem by the ER physician after which her heart rate converted to sinus rhythm. On evaluation patient was on 2 L of oxygen which is her home oxygen level but did not have any other active complaints. Last echo : Severe tricuspid regurgitation with a right ventricular systolic pressure of73 mmHg consistent with severe pulmonary hypertension Concentric LVH with biatrial enlargement. RV enlargement. Valves are normal. EF of 55% with normal RV function. #1 svt: cardio eval #2 nstemi ?type 2 #3 copd with chronic resp failure #4 pulmonary htn #5 dm: ssi #6 tobacco abuse: advised to quit, refused nicotine patch- time spent 11 mins discharged to home with self care once cleared by caridology Condition at Discharge: Fair Final Diagnosis/Problems List see above Discharge Disposition: Home Discharge Instruct/Medications Diet: Cardiac 2g Na,low cholest Activity: No Restrictions, As Tolerated Discharge Statement: "Patient was advised to return to the ER or call 911 if any headaches, dizziness, shortness of breath, chest pain, abdominal pain, bleeding, fevers, or worsening of medical condition. Patient was counseled about treatment plan, medications, possible side effects, patientverbalized understanding. All questions were answered to the best of my ability. This discharge took greater then 30 minutes in planning, reviewing documentation, counseling the patient, and discussing with other team members." ASSESSMENT ASSESSMENT Assessment Date of Service: Oct 30, 2024 Billing Provider: GOPI WAY DO Common Visit Codes: [id number] DISCH DAY >30min GOPI WAY DO Oct 30, 2024 11:06
[2024-10-31] VITALS (7 sets, daily range): BP systolic 102–112; BP diastolic 60–65; PULSE 57–73; RESP 15–18; TEMP 97.5–98; O2SAT 94–100
--- NOTE | 2024-10-31 12:01 | DVHPN2 ---
Reviewed: Care Plan, H&P, Labs, Medications, Previous Orders, Radiology Changes from previous H/P or p: No Changes General: Per HPI Objective Vitals Vital Signs Date Time Temp Pulse Resp B/P (MAP) Pulse Ox O2 Delivery O2 Flow Rate FiO2 10/31/24 10:00 99 Nasal Cannula 2.0 10/31/24 10:00 28 10/31/24 09:00 97.5 73 17 103/60 (74) 97.5 Intake/Output Intake and Output 10/31/24 07:00 Intake Total 920 ml Balance 920 ml Intake Oral 920 ml # Voids 6 # Bowel Movements 2 Medications Current Medications Medications Dose Ordered Sig/Vee Route Start Time Stop Time Status Last Admin Dose Admin Albuterol 2.5 mg Q4HPRN PRN NEB 10/28/24 04:45 10/30/24 22:04 2.5 MG Ipratropium [place] 0.5 mg Q4HPRN PRN NEB 10/28/24 04:45 Diagnostic Test (Pha) 1 strip ACHS 10/28/24 11:30 10/31/24 11:56 1 STRIP Insulin Human Regular ACHS SC 10/28/24 11:30 10/30/24 17:47 2 UNITS Dextrose 50 ml UD PRN IV 10/28/24 09:00 Metoprolol Tartrate 25 mg BID PO 10/28/24 22:00 10/31/24 08:56 25 MG Enoxaparin Sodium 60 mg Q12HR SC 10/29/24 10:00 10/31/24 08:56 60 MG Laboratory Results Laboratory Tests 10/29/24 07:01 Urinalysis Test 10/28/24 00:04 Urine Color Colorless (Yellow) Urine Clarity Turbid (Clear) H Urine pH 6.0 (5.0-9.0) Urine Specific [place] 1.006 (1.001-1.035) Urine Protein Negative (Negative) Urine Ketones Negative (Negative) Urine Blood Negative /uL (Negative) Urine Nitrite Negative (Negative) Urine Bilirubin Negative (Negative) Urine Urobilinogen Normal mg/dL (Negative) Urine Leukocyte Esterase Negative /uL (Negative) Urine RBC <1 /hpf (0 - 4) Urine Microscopic WBC < 1 /HPF (0-5) Urine Squamous Epithelial Cells None seen /hpf (<5) Urine Bacteria None seen /hpf (None Seen) Urine Glucose Normal mg/dL (Normal) Assessment/Plan Assessment/Plan #1 svt: cardio eval #2 nstemi ?type 2 #3 copd with chronic resp failure #4 pulmonary htn #5 dm: ssi #6 tobacco abuse: advised to quit, refused nicotine patch- time spent 11 mins discharged to home 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
== END 2024-10-31 14:58 | disposition home or self-care (01) | DRG 281 ==
LOC: ER 22:26 → EDBD 22:26 → OVERFLOW 10-28 04:41 → TELE-EAST 10-28 18:00
PROVIDERS: ADMIT Internal Medicine; ATTEND Internal Medicine
DX: I47.10 Supraventricular tachycardia, unspecified (principal); J96.10 Chronic respiratory failure, unspecified whether with hypoxia or hypercapnia; I21.A1 Myocardial infarction type 2; I27.20 Pulmonary hypertension, unspecified; I07.1 Rheumatic tricuspid insufficiency; E11.9 Type 2 diabetes mellitus without complications; I48.91 Unspecified atrial fibrillation; J44.89 Other specified chronic obstructive pulmonary disease; J43.9 Emphysema, unspecified; I10 Essential (primary) hypertension; Z72.0 Tobacco use; Z99.81 Dependence on supplemental oxygen; Z79.899 Other long term (current) drug therapy
CPT/HCPCS: 36415; 71045; 80048; 80053; 80061; 80307; 81001; 82962; 83036; 83735; 83880; 84443; 84484; 85025; 93005; 94640; 96365; 96375; G0378; J1815

== ENCOUNTER 2024-11-25 20:57 | Emergency (ER) | payer MEDICARE, OTHER ==
[~2024-11-25] VITALS: Ht 160 cm; Wt 145.0 kg
[~2024-11-25 20:57] MED LIST changes: +APIX5TAB PO; +ATOR40TA52 PO; +AZIT500T66 PO; +MET25T PO; +METF-370 PO; +PRED1PAK9 PO
--- NOTE | 2024-11-25 21:15 | ED.PDOC ---
GI ASSESSMENT HPI Comments 69-year-old female who came to ER via EMS for abdominal pain. Patient has history of hypertension, diabetes, COPD on home oxygen, and GERD. Since 5:00 p.m. he has been having episodes of sharp, cramping, constant, epigastric abdominal pain, associated multiple bouts of nausea and vomiting. Thinks his GERD this acting up again Chief Complaint: Abdominal Pain Time Seen by MD: 21:14 Primary Care Provider: ISAIAH Reviewed Notes: Nurses Notes Allergies: Coded Allergies: NO KNOWN ALLERGIES (Unverified , 08/11/19) Home Meds Active Scripts Famotidine (PEPCID TABLET) 20 Mg Tb, 1 TAB PO BID PRN, #100 TAB 5 Refills Prov:MARIA DE JESUS METZ MD 11/25/24 Ondansetron HCl (Ondansetron Hydrochloride) 8 Mg Tab, 8 MG PO Q6HP PRN, #30 TAB Prov:MARIA DE JESUS METZ MD 11/25/24 Apixaban Base (ELIQUIS) 5 Mg Tab, 5 MG PO BID for 30 Days, #60 TAB Prov:GOPI WAY DO 10/30/24 Metoprolol Tartrate (Lopressor) 25 Mg Tb, 25 MG PO BID for 30 Days, #60 TAB 3 Refills Prov:GOPI WAY DO 10/30/24 Reported Medications Azithromycin (Azithromycin) 500 Mg Tab, 500 MG PO DAILY 10/28/24 Prednisone (Prednisone) 10 Mg Edilberto, 10 MG PO, PACK 10/28/24 Atorvastatin Calcium (ATORVASTATIN CALCIUM) 40 Mg Tab, 1 TAB PO DAILY, #30 TAB 5 Refills 10/28/24 Metformin Hydrochloride (Metformin Hcl) 500 Mg Tab, 500 MG PO DAILY for 30 Days, MG 10/28/24 Albuterol Sulfate (Ventolin) 2 Mg/5 Ml Sr, 5 ML PO TID, #150 ML 09/08/24 Tiotropium [place] Monohydrate (Spiriva Handihaler) 18 Mcg Cap, 18 MCG IN, CAP 09/08/24 Montelukast Sodium (Singulair) 4 Mg Chw, 1 TAB PO DAILY, #30 TAB 5 Refills 09/08/24 Ipratropium [place] Hfa (Atrovent Hfa) 17 Mcg Aer, 2 PUFF INH QID, #12.9 GRAMS 5 Refills 09/08/24 Information Source: Patient Mode of Arrival: EMS Timing: Hours Duration: Since onset Prehospital treatment: None Quality: Cramping, Sharp Vomitus: Watery Stool: Normal Severity: Moderate Recent: None Recent Hx of: Ulcer Disease Pain Location: Epigastric Associated sign and symptoms: Nausea, Vomiting, Abdominal Pain Past Medical History PAST MEDICAL HISTORY: Asthma, COPD, DM, GERD, HTN, MD Past Medical History (Other): SVT, pulmonary hypertension Surgical History: [employer] ASSISTANT History: No Pertinent [employer] ASSISTANT History Family History Family History: Reviewed,noncontributory to illness Social History Smoker: Non-Smoker Alcohol: Occasionally Drugs: Denies Drug Use Lives In: Home Constitutional: denies: chills, diaphoresis, fatigue, fever, malaise, sweats, weakness, others EENTM: denies: blurred vision, double vision, ear bleeding, ear discharge, ear drainage, ear pain, ear ringing, eye pain, eye redness, hearing loss, mouth pain, mouth swelling, nasal discharge, nose bleeding, nose congestion, nose pain, photophobia, tearing, throat pain, throat swelling, voice changes, others Cardiovascular: denies: chest pain, dizzy spells, diaphoresis, Dyspnea on exertion, edema, irregular heart beat, left arm pain, lightheadedness, palpitations, PND, syncope, others Gastrointestinal: reports: abdominal pain, nausea, vomiting; denies: abdomen distended, blood streaked bowels, constipated, diarrhea, dysphagia, difficulty swallowing, hematemesis, melena, poor appetite, poor fluid intake, rectal bleeding, rectal pain, others Genitourinary: denies: abnormal vagina bleeding, burning, dyspareunia, dysuria, flank pain, frequency, hematuria, incontinence, pain, , vagina dischar ge, urgency, others Neurological: denies: dizziness, fainting, headache, left sided numbness, left sided weakness, numbness, paresthesia, pre-existing deficit, right sided numbness, right sided weakness, seizure, speech problems, tingling, tremors, weakness, others Musculoskeletal: denies: back pain, gout, joint pain, joint swelling, muscle pain, muscle stiffness, neck pain, others Integumetry: denies: bruises, change in color, change in hair/nails, dryness, laceration, lesions, lumps, rash, wounds, others Allergic/Immunocompromised: denies: Difficulty Healing, Frequent Infections, Hives, Itching, others Hematologic/Lymphatic: denies: anemia, blood clots, easy bleeding, easy bruising, swollen glands, others Endocrine: denies: excessive hunger, excessive sweating, excessive thirst, excessive urination, flushing, intolerance to cold, intolerance to heat, unexplained weight gain, unexplained weight loss, others Psychiatric: denies: anxiety, bipolar disorder, depression, hopeless, panic disorder, schizophrenia, sleepless, suicidal, others Physical Exam General Appearance: No Apparent Distress, Normal HEENT: Normal ENT Inspection, Pharynx Normal, TMs Normal Neck: Full Range of Motion, Non-Tender, Normal, Normal Inspection Respiratory: Chest Non-Tender, Lungs Clear, No Accessory Muscle Use, No Respiratory Distress, Normal Breath Sounds Cardiovascular: No Edema, No JVD, No Murmur, No Gallop, Normal Peripheral Pulses, Regular Rate/Rhythm Breast Exam: Deferred Gastrointestinal: No Organomegaly, Non Tender, No Pulsatile Mass, Normal Bowel Sounds, Soft Genitalia: Deferred Pelvic: Deferred Rectal: Deferred Extremities: No calf tenderness, Normal capillary refill, Normal inspection, Normal range of motion, Non-tender, No pedal edema Musculoskeletal : Apperance: Normal Neurologic: Alert, information technology analyst II-XII nml as Tested, No Motor Deficits, Normal Affect, Normal Mood, No Sensory Deficits Cerebellar Function: Normal Reflexes: Normal Skin: Dry, Normal Color, Warm Lymphatic: No Adenopathy Was a procedure done? Was a procedure done?: No GI differential Dx Differential Diagnosis: Diverticular disease, Gastritis/PUD, Gastroenteritis, Hernia, Pancreatitis, UTI, Urolithiasis, Electrolyte Imbalance, Food Poisoning X-Ray, Labs, Meds, VS Vital Signs Date Time Temp Pulse Resp B/P (MAP) Pulse Ox O2 Delivery O2 Flow Rate FiO2 11/26/24 00:42 98.2 71 18 104/51 (68) 100 98.2 11/26/24 00:42 71 18 100 Room Air* 0 21 11/26/24 00:15 98.9 71 18 104/51 (68) 100 98.9 11/25/24 21:05 47 11/25/24 20:57 98.0 50 18 157/68 (97) 95 98.0 Lab Test 11/25/24 21:20 Range/Units White Blood Count 7.8 4.4-10.8 10^3/uL Red Blood Count 5.20 4.0-5.20 10^6/uL Hemoglobin 13.6 12.2-16.2 g/dL Hematocrit 41.6 36.0-46.0 % Mean Corpuscular Volume 80.1 80.0-100.0 fL Mean Corpuscular Hemoglobin 26.1 L 28.0-32.0 pg Mean Corpuscular Hemoglobin Concent 32.6 32.0-36.0 g/dL Red Cell Distribution Width 15.7 H 11.8-14.3 % Platelet Count 180 140-450 10^3/uL Mean Platelet Volume 8.0 6.9-10.8 fL Neutrophils (%) (Auto) 80.7 H 37.0-80.0 % Lymphocytes (%) (Auto) 10.2 10.0-50.0 % Monocytes (%) (Auto) 8.5 0.0-12.0 % Eosinophils (%) (Auto) 0.3 0.0-7.0 % Basophils (%) (Auto) 0.3 0.0-2.0 % Neutrophils # (Auto) 6.3 1.6-8.6 10 ^3/uL Lymphocytes # (Auto) 0.8 0.4-5.4 10 ^3/uL Monocytes # (Auto) 0.7 0-1.3 10 ^3/uL Eosinophils # (Auto) 0 0-0.8 10 ^3/uL Basophils # (Auto) 0 0-0.2 10 ^3/uL Nucleated Red Blood Cells 0.0 % Sodium Level 142 136-145 mmol/L Potassium Level 4.1 3.5-5.1 mmol/L Chloride Level 103 98-107 mmol/L Carbon Dioxide Level 32 H 20-31 mmol/L Anion Gap 7 5-15 Blood Urea Nitrogen 14 9-23 mg/dL Creatinine 0.87 0.550-1.02 mg/dL Glomerular Filtration Rate Calc 71 >90 mL/min BUN/Creatinine Ratio 16.1 10.0-20.0 Serum Glucose 175 H 74-106 mg/dL Calcium Level 9.6 8.7-10.4 mg/dL Magnesium Level 2.0 1.6-2.6 mg/dL Total Bilirubin 0.8 0.2-1.0 mg/dL Aspartate Amino Transferase (AST) 187 H 13-40 U/L Alanine Aminotransferase (ALT) 95 H 7-40 U/L Alkaline Phosphatase 82 46-116 U/L Troponin I High Sensitivity 17 </=34 ng/L Total Protein 6.6 5.7-8.2 g/dL Albumin 4.3 3.2-4.8 g/dL Lipase 73 H 12-53 U/L Current Medications Medications (Trade) Dose Ordered Sig/Vee Route Start Time Stop Time Status Last Admin Sodium Chloride 500 ml @ 500 mls/hr Q1H ONCE IVB 11/25/24 21:15 11/25/24 22:14 DC 11/26/24 00:17 Ondansetron HCl (Zofran) 4 mg ONCE ONCE IV 11/25/24 21:15 11/25/24 21:16 DC 11/26/24 00:15 Famotidine (Pepcid Tablet) 20 mg ONCE ONCE PO 11/25/24 23:15 11/25/24 23:16 DC 11/26/24 00:14 Al Hydrox/Mg Hydrox/Simethicone (Maalox Plus) 15 ml ONCE ONCE PO 11/25/24 23:15 11/25/24 23:16 DC 11/26/24 00:14 Time of 1ST Reevaluation: 21:09 Reevaluation 1ST: Unchanged Patient Education/Counseling: Diagnosis, Treatment Family Education/Counseling: No Family Present Departure 1 Departure Time of Disposition: 23:00 Impression: Primary Impression: Nausea & vomiting Additional Impression: Upper abdominal pain Disposition: 01 HOME / SELF CARE / HOMELESS Condition: Stable e-Prescriptions Famotidine (PEPCID TABLET) 20 Mg Tb 1 TAB PO BID PRN, #100 TAB 5 Refills Prov: MARIA DE JESUS METZ MD 11/25/24 Ondansetron HCl (Ondansetron Hydrochloride) 8 Mg Tab 8 MG PO Q6HP PRN, #30 TAB Prov: MARIA DE JESUS METZ MD 11/25/24 Discharged With: Self Critical Care Note Critical Care Time?: No Stability Stability form required: No Heart Score Heart Score: Heart Score Response (Comments) Value History N/A 0 EKG N/A 0 Age N/A 0 Risk Factors N/A 0 Troponin N/A 0 Total 0 I personally scribed for MARIA DE JESUS METZ MD ([email or web address]) on 11/25/24 at 21:15. Electronically submitted by Chu Pitt ([email or web address]). MARIA DE JESUS METZ MD November 25, 2024 21:15
[2024-11-25 21:46] LABS: Basophils # (auto) 0 10 ^3/uL (0-0.2); Eosinophils # (auto) 0 10 ^3/uL (0-0.8); Eosinophils % (auto) 0.3 % (0.0-7.0); Lymphocytes # (auto) 0.8 10 ^3/uL (0.4-5.4); Monocytes # (auto) 0.7 10 ^3/uL (0-1.3)
[2024-11-25 21:48] LABS: Basophils % (auto) 0.3 % (0.0-2.0); Hematocrit 41.6 % (36.0-46.0); Hemoglobin 13.6 g/dL (12.2-16.2); Lymphocytes % (auto) 10.2 % (10.0-50.0); Mean Corpuscular Hemoglobin 26.1 pg (28.0-32.0); Mean Corpuscular Hgb Conc. 32.6 g/dL (32.0-36.0); Mean Corpuscular Volume 80.1 fL (80.0-100.0); Monocytes % (auto) 8.5 % (0.0-12.0); Neutrophils # (auto) 6.3 10 ^3/uL (1.6-8.6); Neutrophils % (auto) 80.7 % (37.0-80.0); Platelet Count (auto) 180 10^3/uL (140-450); Red Cell Distribution Width 15.7 % (11.8-14.3); White Blood Cell 7.8 10^3/uL (4.4-10.8)
[2024-11-25 21:59] LABS: Albumin 4.3 g/dL (3.2-4.8); Alkaline Phosphatase 82 U/L (46-116); Anion Gap 7 (5-15); BUN/Creatinine Ratio 16.1 (10.0-20.0); Bilirubin, Total 0.8 mg/dL (0.2-1.0); Blood Urea Nitrogen 14 mg/dL (9-23); Calcium 9.6 mg/dL (8.7-10.4); Chloride 103 mmol/L (98-107); Potassium 4.1 mmol/L (3.5-5.1); Sodium 142 mmol/L (136-145); Total Protein 6.6 g/dL (5.7-8.2)
[2024-11-25 22:01] LABS: Alanine Aminotransferase 95 U/L (7-40); Aspartate Aminotransferase 187 U/L (13-40); Carbon Dioxide 32 mmol/L (20-31); Glucose 175 mg/dL (74-106); Lipase 73 U/L (12-53)
--- NOTE | 2024-11-25 22:44 | DVH ---
CHEST RADIOGRAPH Indication: SOB Technique: Single frontal view of the chest was obtained Comparison: XY CHEST XRAY 1 VIEW on DOS: 10/27/24, XY CHEST PORTABLE on DOS: 09/07/24 FINDINGS: Lines and Tubes: None Lungs: No focal consolidation. Pleura: No effusion. No pneumothorax. Cardiomediastinal contours: Unremarkable Bones: No acute osseous abnormality. IMPRESSION: 1. No significant change from 10/27/2024
--- NOTE | 2024-11-25 22:52 | DVH ---
Exam: CT CT AB PEL WITH IV CON ONLY History: abd pain , N/V COMPARISON: None Technique: Multidetector spiral CT of the abdomen and pelvis was performed from lung bases to pubic s ymphysis. Intravenous contrast was administered during this examination. Portal venous imaging was obtained. Axial, coronal and sagittal multiplanar reformats were performed by the technologist on a separate workstation. Radiation Dose : 1. Abdomen/Pelvis: CTDIvol 7.0 mGy, DLP 368 mGy*cm. CONTRAST: Type of contrast: Omni 300 Contrast injected: 100 ml Findings: Lung Bases: Bibasilar atelectasis/scarring. No acute or significant lung base finding. Normal heart size. No pleural or pericardial effusion. Liver: The liver is normal in size. No focal lesions. Normal hepatic vascular enhancement. Gallbladder and Biliary Tree: Unremarkable Spleen: Unremarkable Pancreas: The pancreas is normal in appearance without focal lesions or abnormal enhancement. Adrenal Glands: Unremarkable Kidneys: No hydronephrosis. Bladder: Unremarkable Bowel: The stomach is grossly normal in appearance. Mild wall thickening of the few loops of small alley wel in the left hemiabdomen may reflect mild enteritis. The appendix is not visualized; however, no secondary findings of acute appendicitis identified. Ascites: Absent Lymphadenopathy: No mesenteric, retroperitoneal or periportal lymphadenopathy. Abdominal Wall and Mesentery: Unremarkable. Vasculature: The visualized abdominal aorta is normal in size and caliber. Abdominal and pelvic vess els demonstrate normal enhancement. Pelvic Organs: Unremarkable Musculoskeletal: No aggressive focal bony lesions, acute fractures or dislocation. Chronic compressio n deformity of the T11, T12, L2, and L3 vertebral bodies IMPRESSION: 1. Mild wall thickening of the few loops of small bowel in the left hemiabdomen may reflect mild ente ritis. Radiation optimization: All CT scans at this facility use at least one of these dose optimization nohemi hniques: automated exposure control mA and/or kV adjustment per patient size (includes targeted exam s where dose is matched to clinical indication) or iterative reconstruction.
[2024-11-25] MEDS ORDERED: FAMO20TA10 PO (23:09)
[2024-11-25] MEDS ORDERED: ONDA-180 PO (23:09)
[2024-11-25] MEDS: IOHEXOL 300 MG/ML 100ML BOTTLE IJ ONE (23:31)
[2024-11-26] MEDS: MAALOX PLUS or MAALOX 30 ML PO ONE (00:14)
[2024-11-26] MEDS: FAMOTIDINE 20 MG TAB PO ONE (00:14)
[2024-11-26] MEDS: ONDANSETRON HCL 4 MG/2 ML VIAL IV ONE ×2 (00:15→00:17)
[2024-11-26] MEDS: SODIUM CHLORIDE 0.9% 500 ML IVB ONE (00:17)
[2024-11-26 00:42] VITALS: BP 104/51; PULSE 71; RESP 18; TEMP 98.2; O2SAT 100
--- NOTE | 2024-11-26 05:14 | ECG ---
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
== END 2024-11-26 01:36 | disposition home or self-care (01) ==
LOC: EDBD 20:57 → ER 20:57
DX: R10.13 Epigastric pain (principal); R11.2 Nausea with vomiting, unspecified; I10 Essential (primary) hypertension; E11.9 Type 2 diabetes mellitus without complications; I27.20 Pulmonary hypertension, unspecified; J44.89 Other specified chronic obstructive pulmonary disease; K21.9 Gastro-esophageal reflux disease without esophagitis; Z79.84 Long term (current) use of oral hypoglycemic drugs; Z79.899 Other long term (current) drug therapy
CPT/HCPCS: 36415; 71045; 74177; 80053; 83690; 83735; 84484; 85025; 93005; 96374; 99285; J2405; J7040; Q9967